=== PATIENT | female | born 1970 | race Caucasian/White ===

== ENCOUNTER 2025-06-14 12:26 | Outpatient (CLI) | payer BC, SELFPAY ==
[2025-06-14 11:09] LABS: HCT 30.3 % (36.0-46.0); HGB 9.9 g/dL (11.2-15.7); MCH 29.5 pg (27.0-33.0); MCHC 32.7 % (32.0-36.0); MCV 90 fL (80-95); MPV 8.8 fL (8.0-11.0); RBC 3.36 10^6/uL (3.93-5.22); RDW 16.4 % (11.7-14.6); RDW-SD 51.1 fL
[2025-06-14 11:36] LABS: Immature Grans % 0.0 %
[2025-06-14 11:37] LABS: Abs Immature Grans 0.00 10^3/uL (0.0-0.06)
[2025-06-14 11:38] LABS: Iron 30 ug/dL (50-170); Total Iron Binding Capacity 256 ug/dL (250-450); Transferrin Sat 12 % (15-50)
[2025-06-14 11:40] LABS: ALT 26 U/L (14-59); AST 26 U/L (15-37); Albumin 2.5 g/dL (3.4-5.0); Alkaline Phosphatase 212 U/L (46-116); Anion Gap 5.7 mmol/L (3-11); BUN 24 mg/dL (7-18); Bilirubin, Total 0.3 mg/dL (0.2-1.0); CO2 33.3 mmol/L (21.0-32.0); Calcium 10.0 mg/dL (8.5-10.1); Chloride 96 mmol/L (98-107); Estimated GFR 107.26 (mL/min/1.73m2); Ferritin 728 ng/mL (8-252); Glucose 103 mg/dL (74-106); Potassium 4.7 mmol/L (3.5-5.1); Sodium 135 mmol/L (136-145); TSH 28.35 uIU/mL (0.36-3.74); Total Protein 7.0 g/dL (6.4-8.2)
[2025-06-14 11:46] LABS: WBC 25.60 10^3/uL (4.4-10.8)
[2025-06-14 11:47] LABS: Platelet Count 931 10^3/uL (130-400); RBC Morphology Normal
== END 2025-06-14 12:27 | disposition home or self-care (01) ==
LOC: LBO 12:27
PROVIDERS: Visit Provider Nurse Practitioner
DX: C10.9 Malignant neoplasm of oropharynx, unspecified (principal)
CPT/HCPCS: 36415; 80053; 82728; 83540; 83550; 84439; 84443; 85025

== ENCOUNTER 2025-07-12 03:35 | Outpatient (RCR) | payer MEDICAID, SELFPAY ==
[2025-06-21] MEDS: Normal Saline Flush 10 ML SYR IVP (10:27)
[2025-06-21 10:52] LABS: Abs Immature Grans 0.13 10^3/uL (0.0-0.06); HCT 27.7 % (36.0-46.0); HGB 8.8 g/dL (11.2-15.7); Immature Grans % 0.9 %; MCH 29.0 pg (27.0-33.0); MCHC 31.8 % (32.0-36.0); MCV 91 fL (80-95); MPV 9.3 fL (8.0-11.0); Platelet Count 698 10^3/uL (130-400); RBC 3.03 10^6/uL (3.93-5.22); RDW 15.8 % (11.7-14.6); RDW-SD 51.4 fL; WBC 14.58 10^3/uL (4.4-10.8)
[2025-06-21 11:30] LABS: ALT 35 U/L (14-59); AST 28 U/L (15-37); Albumin 2.6 g/dL (3.4-5.0); Alkaline Phosphatase 184 U/L (46-116); Anion Gap 2.8 mmol/L (3-11); BUN 38 mg/dL (7-18); Bilirubin, Total 0.3 mg/dL (0.2-1.0); CO2 32.2 mmol/L (21.0-32.0); Calcium 9.1 mg/dL (8.5-10.1); Chloride 96 mmol/L (98-107); Estimated GFR 103.35 (mL/min/1.73m2); Glucose 106 mg/dL (74-106); Potassium 4.6 mmol/L (3.5-5.1); Sodium 131 mmol/L (136-145); TSH 63.50 uIU/mL (0.36-3.74); Total Protein 7.1 g/dL (6.4-8.2)
[2025-07-05 12:16] LABS: Abs Immature Grans 0.19 10^3/uL (0.0-0.06); HCT 29.2 % (36.0-46.0); HGB 9.6 g/dL (11.2-15.7); Immature Grans % 2.6 %; MCH 31.2 pg (27.0-33.0); MCHC 32.9 % (32.0-36.0); MCV 95 fL (80-95); MPV 9.5 fL (8.0-11.0); Platelet Count 211 10^3/uL (130-400); RBC 3.08 10^6/uL (3.93-5.22); RDW 16.8 % (11.7-14.6); RDW-SD 53.3 fL; WBC 7.20 10^3/uL (4.4-10.8)
[2025-07-05] MEDS: Normal Saline Flush 10 ML SYR IVP (12:32)
[2025-07-05 12:44] LABS: ALT 63 U/L (14-59); AST 39 U/L (15-37); Albumin 2.8 g/dL (3.4-5.0); Alkaline Phosphatase 168 U/L (46-116); Anion Gap 6.5 mmol/L (3-11); BUN 28 mg/dL (7-18); Bilirubin, Total 0.3 mg/dL (0.2-1.0); CO2 30.5 mmol/L (21.0-32.0); Calcium 9.8 mg/dL (8.5-10.1); Chloride 95 mmol/L (98-107); Estimated GFR 103.35 (mL/min/1.73m2); Glucose 112 mg/dL (74-106); Potassium 4.3 mmol/L (3.5-5.1); Sodium 132 mmol/L (136-145); TSH 51.87 uIU/mL (0.36-3.74); Total Protein 7.3 g/dL (6.4-8.2)
[2025-07-12] MEDS: Normal Saline Flush 10 ML SYR IVP (13:47)
[2025-07-12 13:52] LABS: Abs Immature Grans 0.18 10^3/uL (0.0-0.06); HCT 26.5 % (36.0-46.0); HGB 8.5 g/dL (11.2-15.7); Immature Grans % 1.4 %; MCH 30.6 pg (27.0-33.0); MCHC 32.1 % (32.0-36.0); MCV 95 fL (80-95); MPV 8.8 fL (8.0-11.0); Platelet Count 493 10^3/uL (130-400); RBC 2.78 10^6/uL (3.93-5.22); RDW 17.0 % (11.7-14.6); RDW-SD 57.7 fL; WBC 13.04 10^3/uL (4.4-10.8)
[2025-07-12 14:40] LABS: ALT 68 U/L (14-59); AST 39 U/L (15-37); Albumin 2.8 g/dL (3.4-5.0); Alkaline Phosphatase 155 U/L (46-116); Anion Gap 9.1 mmol/L (3-11); BUN 27 mg/dL (7-18); Bilirubin, Total 0.2 mg/dL (0.2-1.0); CO2 27.9 mmol/L (21.0-32.0); Calcium 9.0 mg/dL (8.5-10.1); Chloride 99 mmol/L (98-107); Estimated GFR 107.26 (mL/min/1.73m2); Glucose 118 mg/dL (74-106); Potassium 4.7 mmol/L (3.5-5.1); Sodium 136 mmol/L (136-145); TSH 28.39 uIU/mL (0.36-3.74); Total Protein 7.0 g/dL (6.4-8.2)
== END 2025-07-18 23:59 | disposition home or self-care (01) ==
LOC: INF 03:35
PROVIDERS: Visit Provider Internal Medicine Hematology
DX: Z45.2 Encounter for adjustment and management of vascular access device (principal); C14.0 Malignant neoplasm of pharynx, unspecified
CPT/HCPCS: 36591; 80053; 84439; 84443; 85025

== ENCOUNTER 2025-08-16 03:44 | Outpatient (RCR) | payer MEDICAID, SELFPAY ==
[2025-07-26 10:39] LABS: Abs Immature Grans 0.07 10^3/uL (0.0-0.06); HCT 28.4 % (36.0-46.0); HGB 9.3 g/dL (11.2-15.7); Immature Grans % 0.9 %; MCH 31.2 pg (27.0-33.0); MCHC 32.7 % (32.0-36.0); MCV 95 fL (80-95); MPV 10.3 fL (8.0-11.0); RBC 2.98 10^6/uL (3.93-5.22); RDW 16.3 % (11.7-14.6); RDW-SD 52.3 fL; WBC 7.79 10^3/uL (4.4-10.8)
[2025-07-26] MEDS: Normal Saline Flush 10 ML SYR IVP (10:41)
[2025-07-26 11:07] LABS: Platelet Count 84 10^3/uL (130-400); RBC Morphology Normal
[2025-07-26 11:11] LABS: ALT 68 U/L (14-59); AST 31 U/L (15-37); Albumin 3.0 g/dL (3.4-5.0); Alkaline Phosphatase 142 U/L (46-116); Anion Gap 6.3 mmol/L (3-11); BUN 18 mg/dL (7-18); Bilirubin, Total 0.2 mg/dL (0.2-1.0); CO2 28.7 mmol/L (21.0-32.0); Calcium 9.7 mg/dL (8.5-10.1); Chloride 102 mmol/L (98-107); Estimated GFR 107.26 (mL/min/1.73m2); Glucose 124 mg/dL (74-106); Potassium 4.3 mmol/L (3.5-5.1); Sodium 137 mmol/L (136-145); TSH 5.12 uIU/mL (0.36-3.74); Total Protein 7.3 g/dL (6.4-8.2)
[2025-08-02] MEDS: Normal Saline Flush 10 ML SYR IVP (12:03)
[2025-08-02 12:32] LABS: Abs Immature Grans 0.32 10^3/uL (0.0-0.06); HCT 27.6 % (36.0-46.0); HGB 8.8 g/dL (11.2-15.7); Immature Grans % 3.0 %; MCH 31.1 pg (27.0-33.0); MCHC 31.9 % (32.0-36.0); MCV 98 fL (80-95); MPV 9.3 fL (8.0-11.0); Platelet Count 448 10^3/uL (130-400); RBC 2.83 10^6/uL (3.93-5.22); RDW 18.0 % (11.7-14.6); RDW-SD 60.5 fL; WBC 10.56 10^3/uL (4.4-10.8)
[2025-08-02 13:01] LABS: Iron 31 ug/dL (50-170); Total Iron Binding Capacity 240 ug/dL (250-450); Transferrin Sat 13 % (15-50)
[2025-08-02 13:14] LABS: ALT 121 U/L (14-59); AST 46 U/L (15-37); Albumin 2.7 g/dL (3.4-5.0); Alkaline Phosphatase 175 U/L (46-116); Anion Gap 8.9 mmol/L (3-11); BUN 19 mg/dL (7-18); Bilirubin, Total 0.2 mg/dL (0.2-1.0); CO2 26.1 mmol/L (21.0-32.0); Calcium 10.8 mg/dL (8.5-10.1); Chloride 104 mmol/L (98-107); Estimated GFR 107.26 (mL/min/1.73m2); Ferritin 861 ng/mL (8-252); Glucose 108 mg/dL (74-106); Potassium 4.1 mmol/L (3.5-5.1); Sodium 139 mmol/L (136-145); TSH 2.67 uIU/mL (0.36-3.74); Total Protein 7.3 g/dL (6.4-8.2)
[2025-08-09] MEDS: Normal Saline Flush 10 ML SYR IVP (10:36)
[2025-08-09 10:55] LABS: Abs Immature Grans 1.24 10^3/uL (0.0-0.06); HCT 28.1 % (36.0-46.0); HGB 9.0 g/dL (11.2-15.7); MCH 31.4 pg (27.0-33.0); MCHC 32.0 % (32.0-36.0); MCV 98 fL (80-95); MPV 8.9 fL (8.0-11.0); RBC 2.87 10^6/uL (3.93-5.22); RDW 19.7 % (11.7-14.6); RDW-SD 70.2 fL; WBC 18.22 10^3/uL (4.4-10.8)
[2025-08-09 11:15] LABS: Anisocytosis 2+; Basophilic Stippling 1+; Immature Grans % 0.0 %; Microcytosis 1+
[2025-08-09 11:20] LABS: ALT 42 U/L (14-59); AST 15 U/L (15-37); Albumin 2.9 g/dL (3.4-5.0); Alkaline Phosphatase 131 U/L (46-116); Anion Gap 6.0 mmol/L (3-11); BUN 15 mg/dL (7-18); Bilirubin, Total 0.2 mg/dL (0.2-1.0); CO2 30.0 mmol/L (21.0-32.0); Calcium 9.5 mg/dL (8.5-10.1); Chloride 100 mmol/L (98-107); Estimated GFR 112.08 (mL/min/1.73m2); Glucose 85 mg/dL (74-106); Potassium 3.9 mmol/L (3.5-5.1); Sodium 136 mmol/L (136-145); TSH 0.80 uIU/mL (0.36-3.74); Total Protein 6.7 g/dL (6.4-8.2)
[2025-08-09 11:21] LABS: Platelet Count 752 10^3/uL (130-400)
[2025-08-16] MEDS: Normal Saline Flush 10 ML SYR IVP (10:56)
[2025-08-16 11:11] LABS: Abs Immature Grans 0.98 10^3/uL (0.0-0.06); HCT 31.5 % (36.0-46.0); HGB 10.1 g/dL (11.2-15.7); MCH 31.8 pg (27.0-33.0); MCHC 32.1 % (32.0-36.0); MCV 99 fL (80-95); MPV 8.9 fL (8.0-11.0); Platelet Count 521 10^3/uL (130-400); RBC 3.18 10^6/uL (3.93-5.22); RDW 20.7 % (11.7-14.6); RDW-SD 74.1 fL
[2025-08-16 11:35] LABS: WBC 30.55 10^3/uL (4.4-10.8)
[2025-08-16 11:36] LABS: ALT 35 U/L (14-59); AST 15 U/L (15-37); Albumin 3.1 g/dL (3.4-5.0); Alkaline Phosphatase 134 U/L (46-116); Anion Gap 7.1 mmol/L (3-11); Anisocytosis 1+; BUN 12 mg/dL (7-18); Bilirubin, Total 0.3 mg/dL (0.2-1.0); CO2 28.9 mmol/L (21.0-32.0); Calcium 9.9 mg/dL (8.5-10.1); Chloride 99 mmol/L (98-107); Estimated GFR 103.35 (mL/min/1.73m2); Glucose 92 mg/dL (74-106); Immature Grans % 0.0 %; Potassium 3.8 mmol/L (3.5-5.1); Sodium 135 mmol/L (136-145); TSH 2.14 uIU/mL (0.36-3.74); Total Protein 7.2 g/dL (6.4-8.2)
== END 2025-08-17 23:59 | disposition home or self-care (01) ==
LOC: INF 03:44
PROVIDERS: Nurse Practitioner; Visit Provider Internal Medicine Hematology
DX: Z45.2 Encounter for adjustment and management of vascular access device (principal); C14.0 Malignant neoplasm of pharynx, unspecified
CPT/HCPCS: 36591; 80053; 82728; 83540; 83550; 84439; 84443; 85025

== ENCOUNTER 2025-08-16 14:03 | Outpatient (CLI) | payer MEDICAID, SELFPAY ==
--- NOTE | 2025-08-16 | DI.RAD_ITS ---
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 TECHNIQUE: 2D digital imaging was performed. COMPARISON: No exams were available for comparison FINDINGS: 2 views: Tracheostomy tube is in good position. Right-sided Port-A-Cath distal tip is in the upper right atrium. Heart size is normal. The mediastinum is not widened. Lungs are clear. No infiltrates nor pleural effusions. No pneumothorax. IMPRESSION: No acute pulmonary findings.Tracheostomy tube in satisfactory position DATA REPOSITORY: RADIATION DOSE DELIVERED:
== END 2025-08-16 14:23 ==
LOC: DI 09-17 14:03
PROVIDERS: Visit Provider Nurse Practitioner
DX: C14.0 Malignant neoplasm of pharynx, unspecified (principal)
CPT/HCPCS: 71046

== ENCOUNTER 2025-09-13 13:27 | Inpatient (IN) | payer MEDICAID, SELFPAY ==
[2025-09-13] VITALS (19 sets, daily range): BP systolic 89–134; BP diastolic 60–84; PULSE 66–88; RESP 12–19; TEMP 37; O2SAT 95–100
--- NOTE | 2025-09-13 13:30 | RT.EKG_ITS ---
APPROVED REPORT Exam: Resting ECG Reason for Exam: Hypercalcemia Patient Location: E HR:80 bpm ECG Measurements Heart Rate 80 AXIS ME 126 P 37 QRSd 79 QRS 68 QT 338 T 46 QTc 390 Conclusion Sinus rhythm, rate 80 No interval abnormalities Concave ST elevation inferior and precordial leads. No priors available for comparison, no reciprocal changes
--- NOTE | 2025-09-13 14:00 | DI.CT_ITS ---
Exam(s) CT CHEST/ABD/PEL W EXAM: CT CHEST/ABD/PEL W CLINICAL HISTORY: hypercalcemia, malignancy nasopharynx, abd pain. TECHNIQUE: Imaging Protocol: Axial computed tomography images with coronal and sagittal reformatted images were created and reviewed CONTRAST MATERIAL: Intravenous: Omnipaque 350 Contrast volume:100 ml Oral: None COMPARISON: CR XR CHEST 2V PA LATERAL from 08/16/2025 FINDINGS: CHEST: AORTA: The ascending thoracic aorta exhibits normal size. No evidence of aortic aneurysm. No dissection. There is also no evidence of abdominal aortic aneurysm but there is significant atherosclerotic disease in the distal abdominal aorta with heavy mural calcification and luminal stenosis. There is a significant stenosis at the origin of both common iliac arteries, more prominent in the proximal aspect of the the right common iliac artery. More moderate stenosis is noted more distally in these vessels as well as in the proximal external iliac arteries bilaterally. AIRWAY: There is a tracheostomy. Its distal tip is in satisfactory position above the valdez. There is no significant mucous accumulation or mass in the distal trachea and valdez and mainstem bronchi. LUNGS: There are a few small nodular densities in the lateral aspect of the right middle lobe measuring up to 3 mm, possibly significant given the history here. Few calcified granulomas are noted in the opposite-left lung. There is also some atelectasis in the posterior basal segment of the left lower lobe. There are no pleural effusions. MEDIASTINUM: There is no hilar nor mediastinal adenopathy. CARDIAC: Heart size is normal. There is no pericardial effusion. Distal tip of the Port-A-Cath is in the mid right atrium. OSSEOUS: No significant osseous lesions.There is a compression fracture of the superior endplate of T7 which appears similar to lateral chest x-ray of 08/16/2025.. ABDOMEN: There is a PEG gastrostomy. This is in satisfactory position. There is no evidence of FX is process along the course of this device. There is no ascites. No free air. LIVER: There are no focal hepatic lesions nor dilatation of intrahepatic ducts. GALLBLADDER/BILIARY: No obvious gallbladder pathology. CBD is not dilated. PANCREAS: No evidence of pancreatic mass nor dilatation of the pancreatic duct. SPLEEN: Spleen is not enlarged. There are no intrasplenic lesions. Splenic and portal veins are patent. ADRENALS: There are no significant adrenal masses. KIDNEYS: There is a benign cyst in each kidney which does not require further workup. The benign cyst in the superior pole the right kidney measures 2.6 cm and the benign cyst in the inferior pole of the opposite-left kidney measures 2 cm.. There are no solid renal masses. There is a solitary nonobstructive calculus evident in the lower pole of the left kidney.. ABDOMINAL AORTA: Atherosclerotic-see above LYMPH NODES: There is no retroperitoneal nor paraaortic adenopathy. ABDOMINAL WALL: No evidence of significant anterior abdominal wall nor inguinal hernia. GI: There is no evidence of bowel obstruction.There are no ischemic appearing bowel loops. PELVIS: LYMPH NODES: There is no intrapelvic nor inguinal adenopathy. GI: No evidence of appendicitis.No evidence of sigmoid diverticulitis. URINARY BLADDER: There is uniform thickening of the urinary bladder wall. Bladder is not distended. REPRODUCTIVE: Uterus size is age-appropriate. There are no abnormal adnexal masses and there is no free fluid in the cul-de-sac. OSSEOUS: No significant osseous lesions. No pelvic fractures. IMPRESSION: 1. There is a tracheostomy and gastrostomy on both of which appear unremarkable. There is no excess mucous in the trachea and mainstem bronchi. There are no confluent infiltrates nor pleural effusions. 2. There are a few small lung nodules in the lateral segment of the right middle lobe measuring up to 3 mm. Cannot exclude early metastatic disease. Some platelike atelectasis noted in the left lower lobe. Calcified granuloma noted in left lung. 3. No evidence of aortic aneurysm nor dissection. However, there are significant atherosclerotic disease in the distal abdominal aorta and proximal common iliac arteries. Suspect moderate-severe stenosis in the proximal right common iliac artery and moderate stenosis in the proximal left common iliac artery. There is no aneurysmal dilatation of the iliac arteries. 4. There is mild uniform thickening of the urinary bladder. No distinct mass nor diverticuli in the bladder. No radiopaque calculi evident in the bladder. No air-gas in the bladder lumen. Nonobstructive small 3 millimeter calculus in the right kidney.. Called by myself to ER physician 09/13/2025 at 3:30 p.m. RADIATION DOSE DELIVERED: 395.73mGy.cm Total DLP DATA REPOSITORY: All CT scans at this facility are submitted to the National Radiology Data Registry (NRDR) Dose Index Registry (DIR) with the [employer] (A[employer]). RADIATION OPTIMIZATION: All CT scans at this facility use at least one of these dose optimization techniques: automated exposure control; mA and/or kV adjustment per patient size (includes targeted exams where dose is matched to clinical indication); or iterative reconstruction.
--- NOTE | 2025-09-13 14:11 | W.ED.GENAD ---
Discharge Plan Discharge Details Chief Complaint: GenMedical Primary Care Provider: Unknown,Unknown ED Provider: Tess Vega Home Meds and New Rx's Prescriptions: No Action cyclobenzaprine 10 mg tablet 10 mg PO TID PRN Rx Instructions: x 10 days amoxicillin-pot clavulanate 600-42.9 mg/5 mL suspension for reconstitution 5 ml PO BID dexamethasone 6 mg tablet 6 mg PO BID Rx Instructions: with meals carbamide peroxide 6.5 % drops 5 drp otic (ear) BID fluticasone propionate 50 mcg/actuation spray,suspension 2 spray intranasal DAILY Rx Instructions: administer into each nostril chlorhexidine gluconate [Peridex] 0.12 % mouthwash 15 ml mucous membrane TID fluticasone furoate 27.5 mcg/actuation spray,suspension 2 spray intranasal DAILY Rx Instructions: into each nostril multivit with min-folic acid 400 mcg tablet extended release 1 tab PO DAILY Rx Instructions: with lunch HPI General Mode of arrival: wheelchair. Date/Time Provider Initiated Documentation: 09/13/25 13:42. Limitations to Documentation: no limitations. Information obtained by: patient, family and old records reviewed. HPI Narrative: This is a 54-year-old female patient with a past medical history significant for squamous cell carcinoma of the oropharynx, followed at [facility], with a history of significant metabolic derangements including hypercalcemia, anemia, hyponatremia, SIADH, who is presenting for evaluation of increased calcium and general malaise/fatigue. The patient was seen at her oncology clinic today, with a plan to undergo cycle 5 of carboplatin and 5–FU. She also remains on steroids with a known history of leukocytosis. She had pre-treatment laboratory studies drawn that noted a new onset of hypercalcemia with a corrected calcium to 14.1, and was sent to the emergency department to be evaluated and treated. The patient reports that she has been having some change in her sputum, with thicker secretions. She had her G-tube replaced last Saturday, it has been very difficult to flush since that time. Endorsing constipation with last bowel movement on Saturday, no dysuria or hematuria. She denies fever or chills, had some itching of her skin which she and her family have been attributing to her oxycodone. Related Data Home Medications Medication Instructions Recorded Confirmed amoxicillin 600 mg-potassium 5 ml PO BID 05/07/25 clavulanate 42.9 mg/5 mL oral suspension carbamide peroxide 6.5 % ear drops 5 drp otic (ear) BID 05/07/25 chlorhexidine gluconate 0.12 % 15 ml mucous membrane TID 05/07/25 mouthwash (Peridex) cyclobenzaprine 10 mg tablet 10 mg PO TID PRN 05/07/25 dexamethasone 6 mg tablet 6 mg PO BID 05/07/25 fluticasone furoate 27.5 2 spray intranasal DAILY 05/07/25 mcg/actuation nasal spray,suspension fluticasone propionate 50 2 spray intranasal DAILY 05/07/25 mcg/actuation nasal spray,suspension multivitamin with minerals-folic 1 tab PO DAILY 05/07/25 acid 400 mcg tablet, extended release Allergies Allergy/AdvReac Type Severity Reaction Status Date / Time No Known Allergies Allergy Verified 05/07/25 15:59 General Stated Complaint: GenMedical KALYN: 3 Exam Narrative Exam Narrative: Gen: Awake and alert, in no apparent distress. Is cachectic and chronically ill-appearing HEENT: Non-icteric sclera, PERRL Neck: Supple, tracheostomy in place, with thick white to yellow sputum Lungs: No apparent respiratory distress, normal respiratory effort. Clear and equal without wheezing, rhonchi, rales CV: Appears well perfused, heart with regular rate and rhythm, no murmurs auscultated Abdomen: Non-distended, soft, tenderness to palpation in the periumbilical region and around her G-tube, no surrounding skin changes, no rigidity, rebound, or guarding MSK: Moves 4 extremities without apparent limitation in ROM. No peripheral edema,no CVA tenderness Skin: Visualized skin without rashes, cyanosis. Neuro: No obvious focal deficits or facial asymmetry. Speaks in full, quiet sentences. Psych: Appropriate for situation. Course Vital Signs Vital signs: Vital Signs Temperature 37.0 C 09/13/25 13:34 Pulse 88 09/13/25 13:34 Respiratory Rate 16 09/13/25 13:34 Blood Pressure 89/61 L 09/13/25 13:34 Pulse Oximetry 95 09/13/25 13:34 Temperature 37.0 C 09/13/25 13:35 Pulse 88 09/13/25 13:35 Respiratory Rate 16 09/13/25 13:35 Blood Pressure 89/61 L 09/13/25 13:35 Pulse Oximetry 95 09/13/25 13:35 Oxygen Delivery Method Room Air 09/13/25 13:35 Oxygen Flow Rate 0 09/13/25 13:35 Pain Level 0 09/13/25 13:35 Medical Decision Making This is a 54-year-old female patient with a past medical history significant for squamous cell carcinoma of the nasopharynx, presenting for evaluation of hypercalcemia, general fatigue, abdominal discomfort and constipation. My differential includes but is not limited to hypercalcemia of malignancy, certainly considered hyperparathyroidism (though unfortunately PTH is a send out test at our hospital), considered bone resorption or destruction, metastatic disease. Considered constipation, ileus, bowel obstruction, considered misplacement of G-tube, dehydration, renal failure. The patient's leukocytosis appreciated in the outpatient environment is likely due to her steroid use, I certainly considered an infectious etiologies including aspiration pneumonia, urinary tract infection, intra-abdominal infection, etc. We will obtain labs to include CBC, CMP, magnesium, troponin, GGT, and urinalysis. I will provide the patient with a liter of normal saline for initial rehydration. We will obtain CT imaging of the chest, abdomen, and pelvis to evaluate for evidence of bony destruction, bowel obstruction, and other pathology. I will provide the patient with Tyleno and morphine for symptomatic management of her chronic pain. I obtained an EKG, which shows a sinus rhythm with a rate of 80, with diffusel 1 and less than 1 mm elevations in the inferior and precordial leads, concave, no priors available for comparison, no reciprocal changes. Given the lack of chest pain I have less concern for STEMI and acute ACS. - I reviewed the patient's laboratory studies, which do show a stable leukocytosis to 24 to her chronic steroid use. Anemia redemonstrated at 8.0, no thrombocytopenia. Chemistry panel reveals a very mild hyponatremia to 133, BUN elevation to 31 but no old change in creatinine or GFR. Corrected calcium 14.0 in this patient with a measured calcium of 12.8 and a albumin of 2.5. She has a slight elevation in her alkaline phosphatase to 138, GGT slightly up at 67. CT chest abdomen pelvis obtained and I discussed the results with the radiologist. There is no evidence of destructive bony lesions, pulmonary opacities to suggest acute infection, and the G-tube appears appropriately placed. I provided the patient with a dose of zoledronate, as well as calcitonin. I discussed the case with oncology, who recommends continuing treatment for Hypercalcemia of malignancy with fluid rehydration, redosing of calcitonin and bisphosphonates as needed, and trending of her calcium. The patient can tolerate puréed diet and liquids, did request an oral Zofran while in the emergency department which was provided. I sent off send out labs to include vitamin D, PTH, PTH RP, and reach out to the hospitalist who is graciously accepted this patient for admission to their service. The patient remained hemodynamically improved and was transferred from our department without incident. Tess Vega MD [facility] All Active Problems (Updated 05/07/25 @ 16:16 by Hui Edmonds RN) Laryngeal mass (Acute) 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 Esophageal obstruction (Acute) Esophageal cancer (Acute) Medical History (Updated 05/07/25 @ 16:16 by Hui Edmonds RN) SIADH (syndrome of inappropriate ADH production) Hyponatremia HTN (hypertension) Failure to thrive in adult Surgical History (Updated 05/07/25 @ 16:16 by Hui Edmonds RN) Gastrostomy tube in place Social History Smoking risk assessment performed?: No
[2025-09-13] MEDS: MORPHine 4 MG/ML SYR IVP (14:25)
[2025-09-13] MEDS: ACETAMINOPHEN 1,000 MG/100 ML BAG 400 MG IVPB (14:25)
[2025-09-13 14:26] LABS: Abs Immature Grans 0.42 10^3/uL (0.0-0.06); HCT 23.7 % (36.0-46.0); HGB 8.0 g/dL (11.2-15.7); Immature Grans % 1.7 %; MCH 34.8 pg (27.0-33.0); MCHC 33.8 % (32.0-36.0); MCV 103 fL (80-95); MPV 9.6 fL (8.0-11.0); Platelet Count 172 10^3/uL (130-400); RBC 2.30 10^6/uL (3.93-5.22); RDW 17.6 % (11.7-14.6); RDW-SD 65.2 fL; WBC 24.32 10^3/uL (4.4-10.8)
[2025-09-13] MEDS: Normal Saline 1,000 ML 1000 ML IV (14:26)
[2025-09-13 14:38] LABS: Anisocytosis 2+
[2025-09-13 14:39] LABS: Hypochromasia 1+
[2025-09-13 14:41] LABS: ALT 22 U/L (14-59); AST 13 U/L (15-37); Albumin 2.5 g/dL (3.4-5.0); Alkaline Phosphatase 138 U/L (46-116); Anion Gap 5.1 mmol/L (3-11); BUN 31 mg/dL (7-18); Bilirubin, Total 0.2 mg/dL (0.2-1.0); CO2 34.9 mmol/L (21.0-32.0); Chloride 93 mmol/L (98-107); Glucose 130 mg/dL (74-106); Magnesium 1.7 mg/dL (1.8-2.4); Potassium 3.7 mmol/L (3.5-5.1); Sodium 133 mmol/L (136-145); Total Protein 6.4 g/dL (6.4-8.2)
[2025-09-13 14:43] LABS: Calcium 12.8 mg/dL (8.5-10.1)
[2025-09-13] MEDS: Omnipaque 350 MG/ML 100 ML BTL IJ (14:54)
[2025-09-13] MEDS: Normal Saline Flush 10 ML SYR IVP ×3 (14:55→21:09)
[2025-09-13] MEDS: Normal Saline - Diluent 50 ML VIAL IJ (14:55)
[2025-09-13 15:12] LABS: GGT 67 U/L (5-55); Troponin I 10 ng/L (<or=51)
[2025-09-13] MEDS: MAGNESIUM SULFATE 2 GM/50 ML BAG IV_INF (15:25)
[2025-09-13] MEDS: Ondansetron O.D.T. 4 MG TABEF PO (16:06)
[2025-09-13 16:14] LABS: Troponin I 11 ng/L (<or=51)
[2025-09-13 17:18] LABS: TSH (W/Ref FT4) 4.96 uIU/mL (0.36-3.74)
--- NOTE | 2025-09-13 17:45 | W.PM.HP.N ---
Date of service: 09/13/25 Time of Service: 17:30 Assessment and Plan Assessment and plan (1) Hypercalcemia of malignancy: Status: Acute Assessment and plan: Corrected calcium 14.1 on arrival, slightly improved after zoledronic acid, calcitonin, NS bolus Per review of the guidelines, goal urine output 100-150 ml/hr Can repeat calcitonin as needed, no effect after 48 hours Zoledronic acid can be repeated in a week Admitted to ICU for frequent monitoring/labs and tracheostomy care TSH elevated, awaiting free T4 Awaiting PTH labs (2) Squamous cell carcinoma of nasopharynx: Status: Acute Assessment and plan: [place] [facility] [place] in [place] Continue PRN oxycodone (3) Tracheostomy in place: Status: Acute Assessment and plan: Not used for breathing Regular tracheostomy care (4) Gastrostomy tube in place: Assessment and plan: Regular PEG care Patient can tolerate puree Continue PPI (5) Hypothyroidism: Status: Chronic Assessment and plan: Continue levothyroxine History of Present Illness History of Present Illness Chief Complaint: weakness/malaise Narrative: Cindy Caputo is a 54 year old woman presenting September 13, sent in from oncology clinic where she was unable to have today's chemotherapy due to abnormal labs. Patient has squamous cell carcinoma of the oropharynx and [place] [facility] [place] She has a trach collar, which she does not depend on for breathing but cannot be removed, and she reports that she has had some increased sputum production lately. She has had difficulty flushing her PEG since it was replaced last Saturday. She is constipated and reports her last BM was 5 days prior to arrival. She has had itchy skin that she associates with oxycodone. She complains only of fatigue, and discomfort at the site of her PEG tube. No chest pain, no shortness of breath, no abdominal pain, no N/V/D. In the ED her blood pressure was low 89/61; vitals otherwise unremarkable. EKG with sinus rhythm, no STEMI. CT chest/abdomen/pelvis confirm tracheostomy and gastrostomy; some small lung nodules, atherosclerotic disease, bladder thickening; no apparent new masses. Leukocytosis 26.19. Macrocytic anemia with hgb 8.6 and MCV 103. Mild hyponatremia 134. Elevated CO2 35.6. Renal function intact with elevated BUN. Mg 1.7. Thyroid and PTH labs sent. She was confirmed to have elevated corrected calcium 14.1. [facility] [place] and recommended zoledronic acid and calcitonin, which were given in the ED, as well as isotonic saline. PFSH All Active Problems (Updated 09/13/25 @ 18:51 by Narinder Fuentes MD) Hypothyroidism (Chronic) PEG (percutaneous endoscopic gastrostomy) status (Acute) Tracheostomy in place (Acute) Hypercalcemia of malignancy (Acute) Laryngeal mass (Acute) 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 Esophageal obstruction (Acute) Esophageal cancer (Acute) Medical History (Updated 09/13/25 @ 18:51 by Narinder Fuentes MD) SIADH (syndrome of inappropriate ADH production) Hyponatremia HTN (hypertension) Failure to thrive in adult Surgical History (Updated 09/13/25 @ 18:51 by Narinder Fuentes MD) Gastrostomy tube in place Social History Smoking risk assessment performed?: No Do you feel safe at home: Yes Do you feel safe in your relationship?: Yes Meds Allergies and Home Medications Allergies Allergy/AdvReac Type Severity Reaction Status Date / Time No Known Allergies Allergy Verified 05/07/25 15:59 Home Medications Medication Instructions Recorded Confirmed Type chlorhexidine gluconate 0.12 % 15 ml mucous membrane TID 05/07/25 09/13/25 History mouthwash (Peridex) levothyroxine 100 mcg tablet 100 mcg PO DAILY 09/13/25 09/13/25 History omeprazole 20 mg capsule,delayed 20 mg PO DAILY 09/13/25 09/13/25 History release oxycodone 5 mg/5 mL oral solution 5 mg PO Q4H PRN 09/13/25 09/13/25 History Exam Narrative Exam Narrative: General: This is a diminutive, chronically ill-appearing woman in no distress HEENT: Tracheostomy, impaired phonation, inability to control secretions CV: RRR. Portacath upper right chest. Resp: CTAB Abd: soft, NTND. PEG in place, site c/d/i MSK: voluntary motion x4 Neuro: awake, alert, no focal deficits Results Labs 09/13/25 14:10 09/13/25 14:10 Labs: Laboratory Results - last 24 hr 09/13/25 09/13/25 09/13/25 14:10 15:50 16:36 WBC 24.32 H RBC 2.30 L Hgb 8.0 L Hct 23.7 L MCV 103 H MCH 34.8 H MCHC 33.8 RDW 17.6 H Plt Count 172 MPV 9.6 Immature Gran % 1.7 Neutrophils % 92.1 Lymphocytes % 2.5 Monocytes % 3.3 Eosinophils % 0.0 Basophils % 0.4 Nucleated RBC % 0.0 Absolute Neutrophils 22.40 H Absolute Lymphocytes 0.61 L Absolute Monocytes 0.80 Absolute Eosinophils 0.00 Absolute Basophils 0.10 RBC Morphology See Below Hypochromasia 1+ Anisocytosis 2+ Sodium 133 L Potassium 3.7 Chloride 93 L Carbon Dioxide 34.9 H Anion Gap 5.1 BUN 31 H Creatinine 0.9 Est GFR (CKD-EPI 2020) 76.44 Glucose 130 H Calcium 12.8 H* Magnesium 1.7 L Total Bilirubin 0.2 GGT 67 H AST 13 L ALT 22 Alkaline Phosphatase 138 H Troponin I 10 11 Total Protein 6.4 Albumin 2.5 L TSH 4.96 H 09/13/25 17:04 WBC RBC Hgb Hct MCV MCH MCHC RDW Plt Count MPV Immature Gran % Neutrophils % Lymphocytes % Monocytes % Eosinophils % Basophils % Nucleated RBC % Absolute Neutrophils Absolute Lymphocytes Absolute Monocytes Absolute Eosinophils Absolute Basophils RBC Morphology Hypochromasia Anisocytosis Sodium Potassium Chloride Carbon Dioxide Anion Gap BUN Creatinine Est GFR (CKD-EPI 2020) Glucose Calcium Magnesium Total Bilirubin GGT AST ALT Alkaline Phosphatase Troponin I Cancelled Total Protein Albumin TSH Last Vital Signs Temp 37.0 C 09/13/25 13:35 Pulse 76 09/13/25 15:20 Resp 18 09/13/25 15:20 BP 89/61 L 09/13/25 13:35 Pulse Ox 99 09/13/25 15:20 Time Spent Time spent with Patient: 40-54 minutes Time was spent: preparing to see the patient(eg.review tests), obtaining and/or reviewing separately otained hiistory, ordering medications,tests, procedures, referring, communicating with other health pet care associate, indepentently interpreting results, counseling the patient and care coordination
[2025-09-13 18:22] LABS: Glucose Negative (Negative)
--- NOTE | 2025-09-13 18:33 | W.PC.ACHO ---
Registration Status: REG ER Primary Language: Preferred Language: ED Information & Data Chief Complaint GenMedical 09/13/25 18:25 Chief Complaint GenMedical 09/13/25 14:14 Triage Note pt being treated for throat 09/13/25 13:34 and head cancer, had lab work done this am, high calcium, pt feels a little dizzy Medical / Surgical History (Last Updated 05/07/25 @ 16:16 by Hui Edmonds, RN) SIADH (syndrome of inappropriate ADH production) Hyponatremia HTN (hypertension) Failure to thrive in adult (Last Updated 05/07/25 @ 16:16 by Hui Edmonds, GREGORIA) Gastrostomy tube in place Most Recent Vital Signs Temperature 37.0 C 09/13/25 13:35 Pulse 76 09/13/25 15:20 Pulse 76 09/13/25 15:20 Respiratory Rate 14 09/13/25 18:22 Respiratory Effort Normal, Non-Labored 09/13/25 18:22 Respiratory Depth Normal 09/13/25 18:22 Respiratory Pattern Normal 09/13/25 18:22 Blood Pressure 89/61 L 09/13/25 13:35 Pulse Oximetry 99 09/13/25 15:20 Oxygen Delivery Method Room Air 09/13/25 13:35 Oxygen Flow Rate 0 09/13/25 13:35 Pain Level 0 09/13/25 13:35 Allergies No Known Allergies Allergy (Verified 05/07/25 15:59) Precautions Isolation Standard precaution 09/13/25 18:25 Active Medications Generic Name Dose Route Start Last Admin Trade Name Freq PRN Reason Stop Dose Admin Zoledronic Acid 4 mg/ Sodium 100 mls @ 400 mls/hr 09/13/25 16:00 09/13/25 16:00 Chloride IVPB 400 mls/hr TODAY ARSLAN Administration Sodium Chloride 0 ml 09/13/25 14:50 09/13/25 14:55 Normal Saline Flush 10 Ml Syr IVP 10 ml PRN PRN Administration IV IV Catheter Type [Right] Port-a-cath (double) Diet Orders Category Date Time Status Regular/Normal [DIET] Nutrition 09/13/25 Dinner Active Diagnostics 09/13/25 09/13/25 09/13/25 Range/Units 22:00 17:44 17:04 WBC (4.4-10.8) 10^3/uL RBC (3.93-5.22) 10^6/uL Hgb (11.2-15.7) g/dL Hct (36.0-46.0) % MCV (80-95) fL MCH (27.0-33.0) pg MCHC (32.0-36.0) % RDW (11.7-14.6) % Plt Count (130-400) 10^3/uL MPV (8.0-11.0) fL Immature Gran % % Neutrophils % % Lymphocytes % % Monocytes % % Eosinophils % % Basophils % % Nucleated RBC % (0.0-0.3) % Absolute Neutrophils (1.2-6.7) 10^3/uL Absolute Lymphocytes (1.2-3.4) 10^3/uL Absolute Monocytes (0.1-0.8) 10^3/uL Absolute Eosinophils (0.0-0.7) 10^3/uL Absolute Basophils (0.0-0.2) 10^3/uL RBC Morphology Hypochromasia Anisocytosis Sodium Pending (136-145) mmol/L Potassium Pending (3.5-5.1) mmol/L Chloride Pending (98-107) mmol/L Carbon Dioxide Pending (21.0-32.0) mmol/L Anion Gap Pending (3-11) mmol/L BUN Pending (7-18) mg/dL Creatinine Pending (0.55-1.02) mg/dL Est GFR (CKD-EPI 2020) Pending (mL/min/1.73m2) Glucose Pending (74-106) mg/dL Calcium Pending (8.5-10.1) mg/dL Ionized Calcium Magnesium (1.8-2.4) mg/dL Total Bilirubin (0.2-1.0) mg/dL GGT (5-55) U/L AST (15-37) U/L ALT (14-59) U/L Alkaline Phosphatase (46-116) U/L Troponin I Cancelled (<or=51) ng/L Total Protein (6.4-8.2) g/dL Albumin (3.4-5.0) g/dL Vit D 1,25-Dihydroxy TSH (0.36-3.74) uIU/mL PTH Intact PTH Related Peptide Urine Color Yellow (Yellow) Urine Clarity Clear (Clear) Urine pH 7.0 (5-8) Ur Specific [place] 1.010 (1.005-1.025) Urine Protein Negative (Neg-Trace) mg/dL Urine Ketones Negative (Negative) mg/dL Urine Blood Negative (Negative) Urine Nitrite Negative (Negative) Urine Bilirubin Negative (Negative) Urine Urobilinogen 0.2 (Up to 0.2) mg/dL Ur Leukocyte Esterase Negative (Negative) Urine Glucose Negative (Negative) mg/dL 09/13/25 09/13/25 09/13/25 Range/Units 16:36 15:50 14:10 WBC 24.32 H (4.4-10.8) 10^3/uL RBC 2.30 L (3.93-5.22) 10^6/uL Hgb 8.0 L (11.2-15.7) g/dL Hct 23.7 L (36.0-46.0) % MCV 103 H (80-95) fL MCH 34.8 H (27.0-33.0) pg MCHC 33.8 (32.0-36.0) % RDW 17.6 H (11.7-14.6) % Plt Count 172 (130-400) 10^3/uL MPV 9.6 (8.0-11.0) fL Immature Gran % 1.7 % Neutrophils % 92.1 % Lymphocytes % 2.5 % Monocytes % 3.3 % Eosinophils % 0.0 % Basophils % 0.4 % Nucleated RBC % 0.0 (0.0-0.3) % Absolute Neutrophils 22.40 H (1.2-6.7) 10^3/uL Absolute Lymphocytes 0.61 L (1.2-3.4) 10^3/uL Absolute Monocytes 0.80 (0.1-0.8) 10^3/uL Absolute Eosinophils 0.00 (0.0-0.7) 10^3/uL Absolute Basophils 0.10 (0.0-0.2) 10^3/uL RBC Morphology See Below Hypochromasia 1+ Anisocytosis 2+ Sodium 133 L (136-145) mmol/L Potassium 3.7 (3.5-5.1) mmol/L Chloride 93 L (98-107) mmol/L Carbon Dioxide 34.9 H (21.0-32.0) mmol/L Anion Gap 5.1 (3-11) mmol/L BUN 31 H (7-18) mg/dL Creatinine 0.9 (0.55-1.02) mg/dL Est GFR (CKD-EPI 2020) 76.44 (mL/min/1.73m2) Glucose 130 H (74-106) mg/dL Calcium 12.8 H* (8.5-10.1) mg/dL Ionized Calcium Pending Magnesium 1.7 L (1.8-2.4) mg/dL Total Bilirubin 0.2 (0.2-1.0) mg/dL GGT 67 H (5-55) U/L AST 13 L (15-37) U/L ALT 22 (14-59) U/L Alkaline Phosphatase 138 H (46-116) U/L Troponin I 11 10 (<or=51) ng/L Total Protein 6.4 (6.4-8.2) g/dL Albumin 2.5 L (3.4-5.0) g/dL Vit D 1,25-Dihydroxy Pending TSH 4.96 H (0.36-3.74) uIU/mL PTH Intact Pending PTH Related Peptide Pending Urine Color (Yellow) Urine Clarity (Clear) Urine pH (5-8) Ur Specific [place] (1.005-1.025) Urine Protein (Neg-Trace) mg/dL Urine Ketones (Negative) mg/dL Urine Blood (Negative) Urine Nitrite (Negative) Urine Bilirubin (Negative) Urine Urobilinogen (Up to 0.2) mg/dL Ur Leukocyte Esterase (Negative) Urine Glucose (Negative) mg/dL Intake and Output - 24 Hour Total 09/13/25 13:27 thru 09/13/25 17:00 Intake Total 1110 Balance 1110 Weight 43.273 kg Intake: IV 1110 Falls Risk Assessment History of Falls No History 09/13/25 14:17 Contributing Factors Impairments,Medications 09/13/25 14:17 Ambulatory Aids Uses ambulatory device + 09/13/25 14:17 Tubes/Lines With any additional score 09/13/25 14:17 Gait Evaluation W/any additional score 09/13/25 14:17 Cognition No cognitive impairment 09/13/25 14:17 Fall Total Score 76 09/13/25 14:17 Level of Risk Maximum Risk 09/13/25 14:17 v v v v v v v v v Sending and/or Receiving Nurses: Please use comment section below to note any information pertinent to the patient hand-off not included above. Information / Comments: Report received from: Holley KINNEY
[2025-09-13] MEDS: Normal Saline 1,000 ML 100 ML IV (19:43)
[2025-09-13] MEDS: Acetaminophen 325 MG TAB 650 MG PO (21:00)
[2025-09-13] MEDS: oxyCODONE 5 MG/5 ML CUP PO (21:00)
[2025-09-13] MEDS: Ondansetron 4 MG/2 ML VIAL IVP (21:08)
[2025-09-13 22:35] LABS: Anion Gap 4.5 mmol/L (3-11); BUN 22 mg/dL (7-18); CO2 32.5 mmol/L (21.0-32.0); Calcium 10.9 mg/dL (8.5-10.1); Chloride 97 mmol/L (98-107); Glucose 105 mg/dL (74-106); Potassium 3.4 mmol/L (3.5-5.1); Sodium 134 mmol/L (136-145)
--- NOTE | 2025-09-13 23:15 | RESPIRATORY ---
Addendum entered by Jorge L Hackett 09/15/25 14:54: Pt will be seen as outpatient on Thursday 09/[address] Uriarte for a trach change. RT has ordered a Shiley cuffless size 6 (7.5mm ID / 10.8mm OD) [id number] for this. Product should arrive to [facility] by Saturday after 09/17. Original Note: Pt. in ICU with pt's own Shiley cuffed tracheotomy tube size 6. Does not use O2 at baseline but does use humidifier per pt. but unclear what type of it. It appears to have trach's cuff ballon tube is cut/taken off and hard to tell if it's occluded or opened to release air from balloon, pt. also does not has knowledge about it. I believe it's opened and working as cuffless trach based on pt. producing voice. RT set up MATCH UP PERSON with trach collar for humidity at 21% FiO2 and 4L of O2 flow rate. Tracheotomy stoma site appears to be intact and clean. Hospital tracheotomy emergency kits at bedside. Pt. has forgotten to brought her emergency kit with her and RT has recommended to bring if anyone can bring if she going to stay more days in hospital.
[2025-09-14] VITALS (42 sets, daily range): BP systolic 90–136; BP diastolic 54–82; PULSE 71–100; RESP 10–22; TEMP 36.6–38.8; O2SAT 95–100
[2025-09-14] MEDS: oxyCODONE 5 MG/5 ML CUP PO ×3 (02:19→21:36)
[2025-09-14] MEDS: Acetaminophen 325 MG TAB 650 MG PO ×3 (05:12→18:32)
[2025-09-14] MEDS: Normal Saline Flush 10 ML SYR IVP ×4 (05:13→18:29)
[2025-09-14] MEDS: Normal Saline 1,000 ML 100 ML IV (05:24)
[2025-09-14] MEDS: Polyethylene Glycol 3350 17 GM PACKET PO (05:24)
[2025-09-14] MEDS: Levothyroxine 100 MCG TAB PO (06:31)
[2025-09-14 06:51] LABS: Abs Immature Grans 0.42 10^3/uL (0.0-0.06); Immature Grans % 2.2 %; MCH 34.3 pg (27.0-33.0); MCHC 33.2 % (32.0-36.0); MCV 104 fL (80-95); MPV 9.5 fL (8.0-11.0); Platelet Count 177 10^3/uL (130-400); RBC 1.98 10^6/uL (3.93-5.22); RDW 17.5 % (11.7-14.6); RDW-SD 64.9 fL; WBC 19.33 10^3/uL (4.4-10.8)
[2025-09-14 06:57] LABS: HGB 6.8 g/dL (11.2-15.7)
[2025-09-14 06:58] LABS: HCT 20.5 % (36.0-46.0)
[2025-09-14 07:11] LABS: ALT 16 U/L (14-59); AST 11 U/L (15-37); Albumin 2.2 g/dL (3.4-5.0); Alkaline Phosphatase 103 U/L (46-116); Anion Gap 2.9 mmol/L (3-11); BUN 16 mg/dL (7-18); Bilirubin, Total 0.2 mg/dL (0.2-1.0); CO2 32.1 mmol/L (21.0-32.0); Calcium 9.9 mg/dL (8.5-10.1); Chloride 99 mmol/L (98-107); Glucose 80 mg/dL (74-106); Potassium 3.2 mmol/L (3.5-5.1); Sodium 134 mmol/L (136-145); Total Protein 5.6 g/dL (6.4-8.2)
[2025-09-14 08:06] LABS: HCT 19.9 % (36.0-46.0); HGB 6.7 g/dL (11.2-15.7)
--- NOTE | 2025-09-14 08:37 | INITIAL_ITS ---
Care Management Initial Assmt Initial Assessment Reason for Hospitalization: Hypercalcemia Functional Status/Living Situation Patient Presentation: Cindy was semi-reclining in bed in the ICU when CM met with her. She appeared uncomfortable and, while polite, was not very talkative. Cindy was admitted with hypercalcemia and anemia. 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 She received 2 units of blood and her hypercalcemia is being treated with zoledronic acid and calcitonin at the recommendation of her [facility] team. Cindy lives alone in an apartment in [place]. She has 3 children but only 1 lives locally. 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 She receives RN and PT through [employer]. She is mostly independent with ADLs but does require some assistance which her [id number] provides. Town of Residence: [place] Resides with: Alone Significant Other/Family: Local Caregiver/Guardian: [id number] Employment Status: Unemployed Instrumental Activities of Daily Living (ADLs): Requires support (needs some help which [id number] provides) Medications Medication Management: No Issues/Barriers identified Advance Directives Advance Directives: Do you have an Advance Directive: Y , 13:33 AD On File at [facility]: Y 09/13/25, 13:33 Date Asked 07/16/25 09/13/25, 13:33 AD Date Reviewed 09/13/25 09/13/25, 13:33 COLST On File at [facility] COLST Date Scanned Code Status Resuscitation Status DNR Portal Pt does not currently have a portal and education provided: Yes Insurance Coverage/Financial Issues Insurance: Medicaid Care Team Visit Care Team Role Provider Type Unknown Unknown Primary Care Provider STAFF PHYSICIAN Mary Bnoe RDN, CDCANA Other Providers COMB WINDER [employer] Other Providers OTHER Shubham Sanchze RDN Other Providers COMB WINDERGARTH Vega MD Emergency Provider [facility] STAFF PHYSICIAN Narinder Fuentes MD Admit Provider [facility] STAFF PHYSICIAN Attending Provider Discharge Potential Discharge Needs: PCP F/U Appt and Other (Oncology) Anticipated Barriers to Discharge: None Identified Patient/Family Education Needs: Review discharge instructions, discuss Ask Me Three Transportation: Private vehicle Plan: Anticipate Cindy will be discharged home with a resumption of home health services when medically cleared. She will follow up with her community providers and plan of care and transport with family. CM will follow and continue to support discharge planning. Social Determinants of Health Screening Social Determinants of health last assessed in clinic: 09/14/25 Will the Patient Participate in the Screening?: Yes Do you worry about having a steady place to live?: no Problems where you live: no known problems In the past 12 months, have you had to go without electric, gas, oil or water in your home?: no 1. Within the past 12 months, we worried whether our food would run out before we got money to buy more.: Never true 2. Within the past 12 months, the food we bought just didn't last and we didn't have money to get more.: Never true Has lack of transportation kept you from medical appointments or from doing things needed for daily living?: no Has anyone in your life made you feel unsafe or unsupported?: no How hard is it for you to pay for the very basics like food, housing, medical care, and heating? Would you say it is:: Not hard at all Do you want help finding or keeping work or a job?: I do not need or want help If for any reason you need help with day-to-day activities such as bathing, preparing meals, shopping, managing finances, etc., do you get the help you need?: I don’t need any help How often do you feel lonely or isolated from those around you?: Never Do you speak a language other than Nepali at home?: No Does the patient want assistance with any of the above?: No PFSH All Active Problems (Updated 09/13/25 @ 18:51 by Narinder Fuentes MD) Hypothyroidism (Chronic) PEG (percutaneous endoscopic gastrostomy) status (Acute) Tracheostomy in place (Acute) Hypercalcemia of malignancy (Acute) Laryngeal mass (Acute) 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 Esophageal obstruction (Acute) Esophageal cancer (Acute) Medical History (Updated 09/13/25 @ 18:51 by Narinder Fuentes MD) SIADH (syndrome of inappropriate ADH production) Hyponatremia HTN (hypertension) Failure to thrive in adult Surgical History (Updated 09/13/25 @ 18:51 by Narinder Fuentes MD) Gastrostomy tube in place Social History Smoking/Tobacco Use Status: Former Tobacco Use Smoking risk assessment performed?: Yes Do you feel safe at home: Yes Do you feel safe in your relationship?: Yes
[2025-09-14] MEDS: Chlorhexidine Gluconate 0.12% Mouthwash 15 ML BTL MM ×3 (08:57→18:28)
[2025-09-14] MEDS: Pantoprazole 40 MG VIAL IVP (08:57)
[2025-09-14] MEDS: POTASSIUM CHLORIDE/D5-0.9%NACL 1,000 ML 100 MEQ IV ×2 (09:00→18:32)
[2025-09-14] MEDS: Bisacodyl 10 MG SUPP PR (10:28)
[2025-09-14] MEDS: Ondansetron 4 MG/2 ML VIAL IVP (10:28)
[2025-09-14] MEDS: Methylnaltrexone 12 MG/0.6 ML VIAL 8 MG SC (10:28)
[2025-09-14] MEDS: Senna TAB 1 TAB PO (10:28)
[2025-09-14] MEDS: Prochlorperazine 10 MG/2 ML VIAL IVP (11:13)
--- NOTE | 2025-09-14 13:24 | PHACLINREV_ITS ---
Pharmacy Admission Review Admission Clinical Review Admission Pharmacy Review: Tracheostomy in place (Acute) Hypercalcemia of malignancy (Acute) Squamous cell carcinoma of nasopharynx (Acute) No Known Allergies Allergy (Verified 05/07/25 15:59) Resuscitation Status DNR Height 5 ft 2 in Weight 45.1 kg Comments Comments/Follow Ups: Follow up on home med questions Pharmacy Admission Review Renal Dosing Renal Dosing: BUN 16 mg/dL (7-18) 09/14/25 05:30 Creatinine 0.6 mg/dL (0.55-1.02) 09/14/25 05:30 Medications needing adjustments: Reviewed (CrCl 76.5 mL/min) List of meds needing interventions: Current medications are okay Anticoagulation Anticoagulation: Hgb 6.7 g/dL (11.2-15.7) L* 6.8 g/dL (11.2-15.7) L* 09/14/25 07:55 09/14/25 05:30 Hct 19.9 % (36.0-46.0) L* 09/14/25 07:55 Plt Count 177 10^3/uL (130-400) 09/14/25 05:30 Creatinine 0.6 mg/dL (0.55-1.02) 09/14/25 05:30 DVT Prophylaxis: Intervened (holding for now due to transfusion today - con firmed with provider) Opiate Usage Evaluate Pain Scale/Pains Meds: Reviewed (5mg q4h PRN - 15mg/24hrs) Scheduled Bowel Reg ordered if on Opiates?: No (PRN docusate/Senna) Relevant Labs Relevant Labs: Sodium 134 mmol/L (136-145) L 09/14/25 05:30 Potassium 3.2 mmol/L (3.5-5.1) L 09/14/25 05:30 Chloride 99 mmol/L (98-107) 09/14/25 05:30 Magnesium 1.7 mg/dL (1.8-2.4) L 09/13/25 14:10 Electrolytes, C-Reactive P, ESR: Reviewed (K 3.2 - receiving potassium/D5/NS infusion) Cardiac Review Cardiac Review: Troponin I Cancelled 09/13/25 17:04 BP, HR, EF%: Reviewed (HR and BP WNL) QTc Review QTc: Reviewed (390 from 09/13/25) IV to PO Switch IV Medications: Reviewed (ondansetron, pantoprazole and prochlorperazine) Home Meds Home Med List reviewed: Intervened Relevent Home Meds Not ordered & why?: omeprazole (has order for IV pantoprazole) Recently filled but not on home med list: liothyronine, hydrocortisone and sodium chloride nebs. Asked nurse to see if patient takes at home, waiting to hear back. Current Meds Current Medication Order Review: Intervened Comments: Changed IV ED access Changed chlorhexidine order from 118ml bulk bottle to 15ml cups - order originally put in as the bulk 118mL bottle, overnight nurse pulled a 15ml cup from pharmacy and documented as given. I credited the bulk bottle and debited for 1 cup. Comments Comments/Follow Ups: Follow up on home med questions
[2025-09-14] MEDS: LORazepam 2 MG/1 ML Oral Concentrate 0.5 MG PO (13:58)
--- NOTE | 2025-09-14 14:21 | PT.INNT ---
PT Notes Visit Reasons: Hypercalcemia PT eval attempted but Nurse Bria said that patient was not feeling all too well with Hbg at 6.7 mg/dL as of 7:55 AM. Hold off on PT until tomorrow morning. Dr Fuentes and Nurse Fraser were apprised.
--- NOTE | 2025-09-14 17:05 | PGE_ITS ---
Objective Last Vital Signs Temp 37.1 C 09/14/25 16:40 Pulse 90 09/14/25 16:01 Resp 18 09/14/25 16:01 BP 116/82 09/14/25 16:00 Pulse Ox 99 09/14/25 16:52 Laboratory Results - last 24 hr 09/13/25 09/13/25 09/13/25 16:36 17:44 22:15 WBC RBC Hgb Hct MCV MCH MCHC RDW Plt Count MPV Immature Gran % Neutrophils % Lymphocytes % Monocytes % Eosinophils % Basophils % Nucleated RBC % Absolute Neutrophils Absolute Lymphocytes Absolute Monocytes Absolute Eosinophils Absolute Basophils Sodium 134 L Potassium 3.4 L Chloride 97 L Carbon Dioxide 32.5 H Anion Gap 4.5 BUN 22 H Creatinine 0.6 Est GFR (CKD-EPI 2020) 107.26 Glucose 105 Calcium 10.9 H Ionized Calcium 1.50 H Total Bilirubin AST ALT Alkaline Phosphatase Total Protein Albumin TSH 4.96 H Urine Color Yellow Urine Clarity Clear Urine pH 7.0 Ur Specific [place] 1.010 Urine Protein Negative Urine Ketones Negative Urine Blood Negative Urine Nitrite Negative Urine Bilirubin Negative Urine Urobilinogen 0.2 Ur Leukocyte Esterase Negative Urine Glucose Negative ABO/Rh Blood Type Recheck Antibody Screen Crossmatch 09/14/25 09/14/25 09/14/25 05:30 07:55 08:43 WBC 19.33 H RBC 1.98 L Hgb 6.8 L* 6.7 L* Hct 20.5 L* 19.9 L* MCV 104 H MCH 34.3 H MCHC 33.2 RDW 17.5 H Plt Count 177 MPV 9.5 Immature Gran % 2.2 Neutrophils % 88.9 Lymphocytes % 5.5 Monocytes % 2.7 Eosinophils % 0.3 Basophils % 0.4 Nucleated RBC % 0.0 Absolute Neutrophils 17.18 H Absolute Lymphocytes 1.06 L Absolute Monocytes 0.52 Absolute Eosinophils 0.06 Absolute Basophils 0.08 Sodium 134 L Potassium 3.2 L Chloride 99 Carbon Dioxide 32.1 H Anion Gap 2.9 L BUN 16 Creatinine 0.6 Est GFR (CKD-EPI 2020) 107.26 Glucose 80 Calcium 9.9 Ionized Calcium Total Bilirubin 0.2 AST 11 L ALT 16 Alkaline Phosphatase 103 Total Protein 5.6 L Albumin 2.2 L TSH Urine Color Urine Clarity Urine pH Ur Specific [place] Urine Protein Urine Ketones Urine Blood Urine Nitrite Urine Bilirubin Urine Urobilinogen Ur Leukocyte Esterase Urine Glucose ABO/Rh O Positive Blood Type Recheck O Positive Antibody Screen NEGATIVE Crossmatch See Detail
[2025-09-14 18:23] LABS: HCT 31.9 % (36.0-46.0); HGB 10.9 g/dL (11.2-15.7)
--- NOTE | 2025-09-14 19:05 | PGE_ITS ---
Date of Service Date of service: 09/14/25 Time of Service: 08:00 Assessment and Plan Assessment and plan (1) Anemia requiring transfusions: Status: Acute Assessment and plan: Morning hemoglobin 6.8, repeat 6.7 Transfusing PRBC 2u Cause unclear, patient says this happens and there is no apparent source of bleeding Monitor H&H (2) Hypercalcemia of malignancy: Status: Acute Assessment and plan: Corrected calcium 14.1 on arrival, slightly improved after zoledronic acid, calcitonin, NS bolus Per review of the guidelines, goal urine output 100-150 ml/hr Can repeat calcitonin as needed, no effect after 48 hours Zoledronic acid can be repeated in a week Admitted to ICU for frequent monitoring/labs and tracheostomy care TSH elevated, awaiting free T4 Awaiting PTH labs Sep 14: Ca 9.9, albumin corrected to 11. Repeat calcitonin dose. (3) Squamous cell carcinoma of nasopharynx: Status: Acute Assessment and plan: Care through [facility] Diagnosis was reportedly in June Continue PRN oxycodone (4) Tracheostomy in place: Status: Acute Assessment and plan: Not used for breathing Regular tracheostomy care (5) Gastrostomy tube in place: Assessment and plan: Regular PEG care Patient can tolerate puree Continue PPI (6) Hypothyroidism: Status: Chronic Assessment and plan: Continue levothyroxine Subjective Subjective Interval history since last seen: Mrs. Caputo is comfortable in bed. Hgb below 7, again under 7 on recheck, transfusing PRBC 2u. Patient reports that she has had blood transfusions many times. Exam Narrative Exam Narrative: General: This is a diminutive, chronically ill-appearing woman in no distress HEENT: Tracheostomy, impaired phonation, inability to control secretions CV: RRR. Portacath upper right chest. Resp: CTAB Abd: soft, NTND. PEG in place, site c/d/i MSK: voluntary motion x4 Neuro: awake, alert, no focal deficits Objective Last Vital Signs Temp 37.1 C 09/14/25 16:40 Pulse 90 09/14/25 16:01 Resp 18 09/14/25 16:01 BP 116/82 09/14/25 16:00 Pulse Ox 99 09/14/25 16:52 Laboratory Results - last 24 hr 09/13/25 09/13/25 09/14/25 16:36 22:15 05:30 WBC 19.33 H RBC 1.98 L Hgb 6.8 L* Hct 20.5 L* MCV 104 H MCH 34.3 H MCHC 33.2 RDW 17.5 H Plt Count 177 MPV 9.5 Immature Gran % 2.2 Neutrophils % 88.9 Lymphocytes % 5.5 Monocytes % 2.7 Eosinophils % 0.3 Basophils % 0.4 Nucleated RBC % 0.0 Absolute Neutrophils 17.18 H Absolute Lymphocytes 1.06 L Absolute Monocytes 0.52 Absolute Eosinophils 0.06 Absolute Basophils 0.08 Sodium 134 L 134 L Potassium 3.4 L 3.2 L Chloride 97 L 99 Carbon Dioxide 32.5 H 32.1 H Anion Gap 4.5 2.9 L BUN 22 H 16 Creatinine 0.6 0.6 Est GFR (CKD-EPI 2020) 107.26 107.26 Glucose 105 80 Calcium 10.9 H 9.9 Ionized Calcium 1.50 H Total Bilirubin 0.2 AST 11 L ALT 16 Alkaline Phosphatase 103 Total Protein 5.6 L Albumin 2.2 L ABO/Rh Blood Type Recheck O Positive Antibody Screen Crossmatch 09/14/25 09/14/25 09/14/25 07:55 08:43 18:15 WBC RBC Hgb 6.7 L* 10.9 L D Hct 19.9 L* 31.9 L MCV MCH MCHC RDW Plt Count MPV Immature Gran % Neutrophils % Lymphocytes % Monocytes % Eosinophils % Basophils % Nucleated RBC % Absolute Neutrophils Absolute Lymphocytes Absolute Monocytes Absolute Eosinophils Absolute Basophils Sodium Potassium Chloride Carbon Dioxide Anion Gap BUN Creatinine Est GFR (CKD-EPI 2020) Glucose Calcium Ionized Calcium Total Bilirubin AST ALT Alkaline Phosphatase Total Protein Albumin ABO/Rh O Positive Blood Type Recheck Antibody Screen NEGATIVE Crossmatch See Detail Time Spent with Patient Time Spent with Patient: 35-49 minutes Time was spent: preparing to see the patient(eg.review tests), obtaining and/or reviewing separately otained hiistory, ordering medications,tests, procedures, referring, communicating with other health certified social workers in health care, indepentently interpreting results, counseling the patient and care coordination
[2025-09-15] VITALS (16 sets, daily range): BP systolic 104–137; BP diastolic 63–78; PULSE 71–86; RESP 7–20; TEMP 36.7–37; O2SAT 97–100
[2025-09-15] MEDS: Acetaminophen 325 MG TAB 650 MG PO ×3 (00:27→11:50)
[2025-09-15] MEDS: POTASSIUM CHLORIDE/D5-0.9%NACL 1,000 ML 100 MEQ IV (03:49)
[2025-09-15] MEDS: oxyCODONE 5 MG/5 ML CUP PO (04:01)
[2025-09-15] MEDS: Levothyroxine 100 MCG TAB PO (05:20)
[2025-09-15] MEDS: Normal Saline Flush 10 ML SYR IVP ×2 (05:20→08:26)
[2025-09-15 06:06] LABS: Abs Immature Grans 0.79 10^3/uL (0.0-0.06); HCT 31.2 % (36.0-46.0); HGB 10.7 g/dL (11.2-15.7); Immature Grans % 3.9 %; MCH 32.1 pg (27.0-33.0); MCHC 34.3 % (32.0-36.0); MCV 94 fL (80-95); MPV 9.3 fL (8.0-11.0); Platelet Count 172 10^3/uL (130-400); RBC 3.33 10^6/uL (3.93-5.22); RDW 21.2 % (11.7-14.6); RDW-SD 69.0 fL; WBC 20.27 10^3/uL (4.4-10.8)
[2025-09-15 06:24] LABS: ALT 14 U/L (14-59); AST 12 U/L (15-37); Albumin 2.0 g/dL (3.4-5.0); Alkaline Phosphatase 99 U/L (46-116); Anion Gap 7.4 mmol/L (3-11); BUN 7 mg/dL (7-18); Bilirubin, Total 0.3 mg/dL (0.2-1.0); CO2 26.6 mmol/L (21.0-32.0); Calcium 8.8 mg/dL (8.5-10.1); Chloride 102 mmol/L (98-107); Glucose 96 mg/dL (74-106); Potassium 3.9 mmol/L (3.5-5.1); Sodium 136 mmol/L (136-145); Total Protein 5.4 g/dL (6.4-8.2)
[2025-09-15 06:43] LABS: Anisocytosis 2+
[2025-09-15] MEDS: Pantoprazole 40 MG VIAL IVP (08:26)
[2025-09-15] MEDS: Chlorhexidine Gluconate 0.12% Mouthwash 15 ML BTL MM (08:26)
--- NOTE | 2025-09-15 08:47 | W.PULMCON ---
General Date Of Service Date of service: 09/15/25 Time of Service: 08:20 Requesting physician: Narinder Fuentes Reason for Consult: Chronic respiratory failure, chronic tracheostomy Recommendations: Assessment: 1. Chronic respiratory failure - s/p tracheostomy placement [place]20[place] [facility] [place] Placed for laryngeal cancer. Currently has a cuffed trach (deflated) #6. Not dependant on mechanical ventilation 2. Hx laryngeal cancer 3. Hypercalcemia - Ca has corrected 4. Pulmonary nodules - multiple small nodules (< 0.4 cm) noted on CT chest 08/2025) Recommendations: - patient is scheduled for discharge today. Unfortunately we do not stock any cuffless trach's in the hospital. Will need to order and will plan to see on Saturday in clinic for exchange to a #6 cuffless trach. This may help with secretions. Discussed with Dr. Fuentes History of Present Illness Narrative: Patient is a 54 yo with a history of laryngeal cancer (s/p tracheostomy 05/2025) who was admitted on 09/13 for hypercalcemia. She was treated with zoledronic acid, calcitonin and IVF with improvement. Ca level this Am was 8.8. She underwent tracheostomy placement in 05/2025 at [facility] [place] Was changed to a cuffless trach prior to discharge. At some point, her tracheostomy fell out and had a cuffed trach placed. The inflation port was cut off at some point. States that her current trach has not been changed for several months. Upon arrival, there was significant mucous buildup around her trach. No bleeding noted. She has been wearing a PMV at home with out significant issue. Currently does not have a speaking valve in place. She has had chronic mucous production since her trach was placed. 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 Esophageal obstruction (Acute) Esophageal cancer (Acute) Medical History (Updated 09/14/25 @ 19:09 by Narinder Fuentes MD) SIADH (syndrome of inappropriate ADH production) Hyponatremia HTN (hypertension) Failure to thrive in adult Surgical History (Updated 09/13/25 @ 18:51 by Narinder Fuentes MD) Gastrostomy tube in place Social History Smoking/Tobacco Use Status: Former Tobacco Use Smoking risk assessment performed?: Yes Do you feel safe at home: Yes Do you feel safe in your relationship?: Yes Visit Medication and Allergies Active Medications Generic Name Dose Route Start Last Admin Trade Name Freq PRN Reason Stop Dose Admin Acetaminophen 650 mg 09/13/25 17:29 09/15/25 06:13 Acetaminophen 325 Mg Tab PO 650 mg Q4H PRN PRN Administration Bisacodyl 10 mg 09/14/25 10:02 09/14/25 10:28 Bisacodyl 10 Mg Supp CO 10 mg DAILY PRN PRN Administration Chlorhexidine Gluconate 15 ml 09/14/25 08:30 09/15/25 08:26 Chlorhexidine Gluconate 0.12% Mouthwash 15 Ml Btl MM 15 ml TID ARSLAN Administration Docusate Sodium 100 mg 09/14/25 10:02 Docusate Sodium 100 Mg Cap PO BID PRN PRN Constipation IV Miscellaneous Supplies 1 each 09/14/25 09:15 Iv Access IV DIRECTED ARSLAN Levothyroxine Sodium 100 mcg 09/14/25 06:00 09/15/25 05:20 Levothyroxine 100 Mcg Tab PO 100 mcg DAILY@0600 ARSLAN Administration Lorazepam 0.5 mg 09/14/25 13:42 Lorazepam 2 Mg/1 Ml Oral Concentrate PO Q6H PRN PRN Ondansetron HCl 4 mg 09/13/25 20:28 09/14/25 10:28 Ondansetron 4 Mg/2 Ml Vial IVP 4 mg Q6H PRN PRN Administration Oxycodone HCl 5 mg 09/13/25 17:38 09/15/25 04:01 Oxycodone 5 Mg/5 Ml Cup PO 5 mg Q4H PRN PRN Administration Pantoprazole Sodium 40 mg 09/14/25 08:30 09/15/25 08:26 Pantoprazole 40 Mg Vial IVP 40 mg DAILY ARSLAN Administration Polyethylene Glycol 17 gm 09/13/25 17:29 09/14/25 05:24 Polyethylene Glycol 3350 17 Gm Packet PO 17 gm DAILY PRN PRN Administration Constipation Prochlorperazine Edisylate 10 mg 09/14/25 11:03 09/14/25 11:13 Prochlorperazine 10 Mg/2 Ml Vial IVP 10 mg Q3H PRN PRN Administration Sennosides 1 tab 09/14/25 10:02 09/14/25 10:28 Senna Tab PO 1 tab BID PRN PRN Administration Sodium Chloride 0 ml 09/13/25 13:44 09/15/25 05:20 Normal Saline Flush 10 Ml Syr IVP 30 ml PRN PRN Administration Sodium Chloride 0 ml 09/13/25 20:00 09/15/25 08:26 Normal Saline Flush 10 Ml Syr IVP 10 ml BID ARSLAN Administration Sodium Chloride 0 ml 09/13/25 13:44 Normal Saline 10 Ml Vial IJ DIRECTED PRN Allergies No Known Allergies Allergy (Verified 05/07/25 15:59) Exam Narrative Exam Narrative: General: alert, no acute distress Head: normocephalic ENT: no stridor, trachea midline CV: [] rate, [] rhythm Respiratory: [] wheezing, [] crackles, [] rhonchi, [] prolonged expiration GI: abd soft, non-tender, non-distended Skin: [] rashes Extremities: [] edema, [] digital clubbing Neuro: [] Psych: normal affect Results Last Vital Signs Temp 36.7 C 09/15/25 07:05 Pulse 76 09/15/25 02:01 Resp 16 09/15/25 02:01 BP 105/63 09/15/25 02:01 Pulse Ox 98 09/15/25 08:22 Labs 09/15/25 05:50 09/15/25 05:50 Labs: Laboratory Results - last 24 hr 09/13/25 09/14/25 09/14/25 16:36 05:30 08:43 WBC RBC Hgb Hct MCV MCH MCHC RDW Plt Count MPV Immature Gran % Neutrophils % Lymphocytes % Monocytes % Eosinophils % Basophils % Nucleated RBC % Absolute Neutrophils Absolute Lymphocytes Absolute Monocytes Absolute Eosinophils Absolute Basophils RBC Morphology Anisocytosis Sodium Potassium Chloride Carbon Dioxide Anion Gap BUN Creatinine Est GFR (CKD-EPI 2020) Glucose Calcium Ionized Calcium 1.50 H Total Bilirubin AST ALT Alkaline Phosphatase Total Protein Albumin PTH Intact 10 L ABO/Rh O Positive Blood Type Recheck O Positive Antibody Screen NEGATIVE Crossmatch See Detail 09/14/25 09/15/25 18:15 05:50 WBC 20.27 H RBC 3.33 L Hgb 10.9 L D 10.7 L Hct 31.9 L 31.2 L MCV 94 D MCH 32.1 MCHC 34.3 RDW 21.2 H Plt Count 172 MPV 9.3 Immature Gran % 3.9 Neutrophils % 89.6 Lymphocytes % 4.0 Monocytes % 2.1 Eosinophils % 0.1 Basophils % 0.3 Nucleated RBC % 0.0 Absolute Neutrophils 18.16 H Absolute Lymphocytes 0.81 L Absolute Monocytes 0.43 Absolute Eosinophils 0.02 Absolute Basophils 0.06 RBC Morphology See Below Anisocytosis 2+ Sodium 136 Potassium 3.9 Chloride 102 Carbon Dioxide 26.6 Anion Gap 7.4 BUN 7 Creatinine 0.5 L Est GFR (CKD-EPI 2020) 112.08 Glucose 96 Calcium 8.8 Ionized Calcium Total Bilirubin 0.3 AST 12 L ALT 14 Alkaline Phosphatase 99 Total Protein 5.4 L Albumin 2.0 L PTH Intact ABO/Rh Blood Type Recheck Antibody Screen Crossmatch Imaging CT scan - chest: report reviewed and image reviewed
--- NOTE | 2025-09-15 08:50 | PDOC.CMPRO ---
Date of service: 09/15/25 Time of Service: 08:51 Care Management Progress Note Discharge Potential Discharge Needs: PCP F/U Appt and Other (oncology) Anticipated Barriers to Discharge: Medical Status Social Determinants of Health Screening Social Determinants of health last assessed in clinic: 09/14/25 Will the Patient Participate in the Screening?: Yes Do you worry about having a steady place to live?: no Problems where you live: no known problems In the past 12 months, have you had to go without electric, gas, oil or water in your home?: no Has lack of transportation kept you from medical appointments or from doing things needed for daily living?: no Has anyone in your life made you feel unsafe or unsupported?: no How hard is it for you to pay for the very basics like food, housing, medical care, and heating? Would you say it is:: Not hard at all Do you want help finding or keeping work or a job?: I do not need or want help If for any reason you need help with day-to-day activities such as bathing, preparing meals, shopping, managing finances, etc., do you get the help you need?: I don’t need any help How often do you feel lonely or isolated from those around you?: Never Do you speak a language other than [place]une[place] at home?: No Does the patient want assistance with any of the above?: No
[2025-09-15] MEDS: Ondansetron 4 MG/2 ML VIAL IVP (09:10)
--- NOTE | 2025-09-15 09:10 | W.PM.DS.N ---
Date of service: 09/15/25 Time of Service: 08:00 DS: Diagnosis Discharge Diagnosis (1) Anemia requiring transfusions: Status: Acute Asessment and Plan: Sep 14 morning hemoglobin 6.8, repeat 6.7 Transfused PRBC 2u Cause unclear, patient says this happens and there is no apparent source of bleeding Hemoglobin in the 10's since transfusion, suggestive of possible hemolysis in blood draw No further intervention at this time, oncology monitoring (2) Hypercalcemia of malignancy: Status: Acute Asessment and Plan: Corrected calcium 14.1 on arrival, slightly improved after zoledronic acid, calcitonin, NS bolus Per review of the guidelines, goal urine output 100-150 ml/hr Can repeat calcitonin as needed, no effect after 48 hours Zoledronic acid can be repeated in a week Admitted to ICU for frequent monitoring/labs and tracheostomy care TSH elevated, awaiting free T4 Awaiting PTH labs Sep 14: Ca 9.9, albumin corrected to 11. Repeat calcitonin dose. Sep 15: Ca 8.8, albumin corrected to 10.4. No further intervention here; oncology to follow. (3) Squamous cell carcinoma of nasopharynx: Status: Acute Asessment and Plan: Care through [facility] Diagnosis was reportedly in June Continue PRN oxycodone (4) Tracheostomy in place: Status: Acute Asessment and Plan: Not dependent on mechanical ventilation, comfortable on room air Appreciate pulmonology consult Outpatient maintenance planned in clinic here in [facility], will get cuffless trach change which may help with secretions (5) Gastrostomy tube in place: Asessment and Plan: Regular PEG care Patient can tolerate puree Continue PPI (6) Hypothyroidism: Status: Chronic Asessment and Plan: Continue levothyroxine Discharge Plan Disposition Patient Disposition: Home W/Home Health Services Condition: Fair Discharge Details Reason For Visit: Hypercalcemia Admit Date/Time: 09/13/25 17:29 Admit Provider: Narinder Fuentes Attending Provider: Narinder Fuentes Primary Care Provider: Unknown,Unknown Recommendations for Follow Up Recommended tests to be ordered by follow up provider: Cindy Caputo is a 54 year old woman presenting September 13, sent in from oncology clinic where she was unable to have chemotherapy due to abnormal labs. Patient has squamous cell carcinoma of the oropharynx and receives care through [facility]. She has a trach collar, which she does not depend on for breathing but cannot be removed. She has had difficulty flushing her PEG since it was replaced Sep 08. In the ED she was found to have severely elevated serum calcium which was treated with isotonic fluids, zoledronic acid and calcitonin with good effect. After admission she was found to have anemia with hemoglobin under 7, redrawn and reconfirmed, and was transfused 2 units of blood, with resulting hemoglobin persisting above 10. She has been seen by pulmonology and will be followed in clinic for tracheostomy care. She has had a bowel movement; she had profuse loose stool after being given methylnatrexone and a suppository. At this time she is safe to return home and resume home health services. Home Meds and New Rx's Prescriptions: Continued chlorhexidine gluconate [Peridex] 0.12 % mouthwash 15 ml mucous membrane TID omeprazole 20 mg capsule,delayed release(DR/EC) 20 mg PO DAILY Patient Comments: TAKE ONE CAPSULE BY MOUTH EVERY DAY oxycodone 5 mg/5 mL solution 5 mg PO Q4H PRN Patient Comments: TAKE 5MLS BY MOUTH EVERY 4 HOURS NEEDED FOR PAIN levothyroxine 100 mcg tablet 100 mcg PO DAILY Patient Comments: TAKE ONE TABLET EVERY DAY IN THE MORNING PER GTUBE Discharge Instructions Instructions: Hypercalcemia (DC) Referrals: Alf Uriarte MD [ [facility] STAFF PHYSICIAN, Pulmonology] Activity:: Activity as Tolerated Equipment/Supplies:: No Equipment Needed Diet:: As Tolerated DS: Summary Time Spent with Patient providing and/or coordinating discharge services: Greater than 30 minutes Status at Discharge Functional status at discharge: uses cane/walker Overall status at discharge: patient is progressing back to baseline Mental Status: mental status grossly normal Speech and Movement: speech and movement normal Mood: congruent mood Affect: normal affect Exam Narrative Exam Narrative: General: This is a diminutive, chronically ill-appearing woman in no distress HEENT: Tracheostomy, impaired phonation, inability to control secretions CV: RRR. Portacath upper right chest. Resp: CTAB Abd: soft, NTND. PEG in place, site c/d/i MSK: voluntary motion x4 Neuro: awake, alert, no focal deficits Psych Mental Status: mental status grossly normal Speech and Movement: speech and movement normal Mood: congruent mood Affect: normal affect DS: Data Vitals/I&O Vitals and I&O: Vital Signs Temperature 36.7 C 09/15/25 07:05 Temperature Source Temporal Artery Scan 09/15/25 07:05 Pulse 76 09/15/25 02:01 Pulse 77 09/15/25 02:01 Respiratory Rate 16 09/15/25 02:01 Respiratory Effort Normal 09/13/25 20:30 Respiratory Depth Normal 09/13/25 20:30 Respiratory Pattern Normal 09/13/25 20:30 Blood Pressure 105/63 09/15/25 02:01 Blood Pressure Mean 75 09/15/25 02:01 Blood Pressure Position Supine 09/13/25 20:30 Pulse Oximetry 98 09/15/25 08:22 Oxygen Delivery Method Trach Collar 09/15/25 08:22 Oxygen Flow Rate 6 09/15/25 08:22 Fraction of Inspired Oxygen (FIO2) 21 09/15/25 08:22 Pain Level 7 09/13/25 20:30 Intake & Output 09/14/25 09/14/25 09/15/25 11:59 23:59 11:59 Intake Total 1868.666 / 3561.999 1693.333 / 3561.999 1433.333 / 1433.333 Output Total 1050 / 2125 1075 / 2125 925 / 925 Balance 818.666 / 1436.999 618.333 / 1436.999 508.333 / 508.333 Weight 45.1 kg 45.1 kg Intake: IV 1196.666 / 2159.999 963.333 / 2159.999 1433.333 / 1433.333 Oral 672 / 672 Blood Product 730 / 730 Rbc Leuko Reduced Unit 350 / 350 [id number] Rbc Leuko Reduced Unit 380 / 380 [id number] Output: Urine 1050 / 2125 1075 / 2125 925 / 925 Other: Urine Color Yellow Yellow Yellow Urine Appearance Clear Cloudy Clear Urine Odor None Normal Normal Comment pt able to assist with placing bedpan for comfort Stool Size Moderate Stool Characteristics Soft Formed Liquid Brown Data Completed and Pending Pending Labs at Discharge: 09/13/25 09/13/25 09/13/25 14:10 15:50 16:36 WBC 24.32 H RBC 2.30 L Hgb 8.0 L Hct 23.7 L MCV 103 H MCH 34.8 H MCHC 33.8 RDW 17.6 H Plt Count 172 MPV 9.6 Immature Gran % 1.7 Neutrophils % 92.1 Lymphocytes % 2.5 Monocytes % 3.3 Eosinophils % 0.0 Basophils % 0.4 Nucleated RBC % 0.0 Absolute Neutrophils 22.40 H Absolute Lymphocytes 0.61 L Absolute Monocytes 0.80 Absolute Eosinophils 0.00 Absolute Basophils 0.10 RBC Morphology See Below Hypochromasia 1+ Anisocytosis 2+ Sodium 133 L Potassium 3.7 Chloride 93 L Carbon Dioxide 34.9 H Anion Gap 5.1 BUN 31 H Creatinine 0.9 Est GFR (CKD-EPI 2020) 76.44 Glucose 130 H Calcium 12.8 H* Ionized Calcium 1.50 H Magnesium 1.7 L Total Bilirubin 0.2 GGT 67 H AST 13 L ALT 22 Alkaline Phosphatase 138 H Troponin I 10 11 Total Protein 6.4 Albumin 2.5 L Vit D 1,25-Dihydroxy Pending TSH 4.96 H PTH Intact 10 L PTH Related Peptide Pending Urine Color Urine Clarity Urine pH Ur Specific [place] Urine Protein Urine Ketones Urine Blood Urine Nitrite Urine Bilirubin Urine Urobilinogen Ur Leukocyte Esterase Urine Glucose ABO/Rh Blood Type Recheck Antibody Screen Crossmatch 09/13/25 09/13/25 09/13/25 17:04 17:44 22:15 WBC RBC Hgb Hct MCV MCH MCHC RDW Plt Count MPV Immature Gran % Neutrophils % Lymphocytes % Monocytes % Eosinophils % Basophils % Nucleated RBC % Absolute Neutrophils Absolute Lymphocytes Absolute Monocytes Absolute Eosinophils Absolute Basophils RBC Morphology Hypochromasia Anisocytosis Sodium 134 L Potassium 3.4 L Chloride 97 L Carbon Dioxide 32.5 H Anion Gap 4.5 BUN 22 H Creatinine 0.6 Est GFR (CKD-EPI 2020) 107.26 Glucose 105 Calcium 10.9 H Ionized Calcium Magnesium Total Bilirubin GGT AST ALT Alkaline Phosphatase Troponin I Cancelled Total Protein Albumin Vit D 1,25-Dihydroxy TSH PTH Intact PTH Related Peptide Urine Color Yellow Urine Clarity Clear Urine pH 7.0 Ur Specific [place] 1.010 Urine Protein Negative Urine Ketones Negative Urine Blood Negative Urine Nitrite Negative Urine Bilirubin Negative Urine Urobilinogen 0.2 Ur Leukocyte Esterase Negative Urine Glucose Negative ABO/Rh Blood Type Recheck Antibody Screen Crossmatch 09/14/25 09/14/25 09/14/25 05:30 07:55 08:43 WBC 19.33 H RBC 1.98 L Hgb 6.8 L* 6.7 L* Hct 20.5 L* 19.9 L* MCV 104 H MCH 34.3 H MCHC 33.2 RDW 17.5 H Plt Count 177 MPV 9.5 Immature Gran % 2.2 Neutrophils % 88.9 Lymphocytes % 5.5 Monocytes % 2.7 Eosinophils % 0.3 Basophils % 0.4 Nucleated RBC % 0.0 Absolute Neutrophils 17.18 H Absolute Lymphocytes 1.06 L Absolute Monocytes 0.52 Absolute Eosinophils 0.06 Absolute Basophils 0.08 RBC Morphology Hypochromasia Anisocytosis Sodium 134 L Potassium 3.2 L Chloride 99 Carbon Dioxide 32.1 H Anion Gap 2.9 L BUN 16 Creatinine 0.6 Est GFR (CKD-EPI 2020) 107.26 Glucose 80 Calcium 9.9 Ionized Calcium Magnesium Total Bilirubin 0.2 GGT AST 11 L ALT 16 Alkaline Phosphatase 103 Troponin I Total Protein 5.6 L Albumin 2.2 L Vit D 1,25-Dihydroxy TSH PTH Intact PTH Related Peptide Urine Color Urine Clarity Urine pH Ur Specific [place] Urine Protein Urine Ketones Urine Blood Urine Nitrite Urine Bilirubin Urine Urobilinogen Ur Leukocyte Esterase Urine Glucose ABO/Rh O Positive Blood Type Recheck O Positive Antibody Screen NEGATIVE Crossmatch See Detail 09/14/25 09/15/25 18:15 05:50 WBC 20.27 H RBC 3.33 L Hgb 10.9 L D 10.7 L Hct 31.9 L 31.2 L MCV 94 D MCH 32.1 MCHC 34.3 RDW 21.2 H Plt Count 172 MPV 9.3 Immature Gran % 3.9 Neutrophils % 89.6 Lymphocytes % 4.0 Monocytes % 2.1 Eosinophils % 0.1 Basophils % 0.3 Nucleated RBC % 0.0 Absolute Neutrophils 18.16 H Absolute Lymphocytes 0.81 L Absolute Monocytes 0.43 Absolute Eosinophils 0.02 Absolute Basophils 0.06 RBC Morphology See Below Hypochromasia Anisocytosis 2+ Sodium 136 Potassium 3.9 Chloride 102 Carbon Dioxide 26.6 Anion Gap 7.4 BUN 7 Creatinine 0.5 L Est GFR (CKD-EPI 2020) 112.08 Glucose 96 Calcium 8.8 Ionized Calcium Magnesium Total Bilirubin 0.3 GGT AST 12 L ALT 14 Alkaline Phosphatase 99 Troponin I Total Protein 5.4 L Albumin 2.0 L Vit D 1,25-Dihydroxy TSH PTH Intact PTH Related Peptide Urine Color Urine Clarity Urine pH Ur Specific [place] Urine Protein Urine Ketones Urine Blood Urine Nitrite Urine Bilirubin Urine Urobilinogen Ur Leukocyte Esterase Urine Glucose ABO/Rh Blood Type Recheck Antibody Screen Crossmatch PFSH All Active Problems (Updated 09/14/25 @ 19:09 by Narinder Fuentes MD) Anemia requiring transfusions (Acute) Hypothyroidism (Chronic) PEG (percutaneous endoscopic gastrostomy) status (Acute) Tracheostomy in place (Acute) Hypercalcemia of malignancy (Acute) Laryngeal mass (Acute) 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 Esophageal obstruction (Acute) Esophageal cancer (Acute) Medical History (Updated 09/14/25 @ 19:09 by Narinder Fuentes MD) SIADH (syndrome of inappropriate ADH production) Hyponatremia HTN (hypertension) Failure to thrive in adult Surgical History (Updated 09/13/25 @ 18:51 by Narinder Fuentes MD) Gastrostomy tube in place Social History Smoking/Tobacco Use Status: Former Tobacco Use Smoking risk assessment performed?: Yes Do you feel safe at home: Yes Do you feel safe in your relationship?: Yes Time Spent with Patient Time Spent with Patient: 45-69 minutes Time was spent: preparing to see the patient(eg.review tests), obtaining and/or reviewing separately otained hiistory, ordering medications,tests, procedures, referring, communicating with other health point of care specialist, indepentently interpreting results, counseling the patient and care coordination
--- NOTE | 2025-09-15 09:29 | PDOC.HHF2F ---
Date of service: 09/15/25 Time of Service: 09:29 Home Health Referral Home Health Orders Medical diagnosis necessitation home health referral: oropharyngeal cancer, tracheostomy site, PEG tube, debility Registered Nurse: Check all that apply Assess for exacerbation of medical condition, instruct patient/caregivers on signs and symptoms to report for early detection: Ordered Assess wound for signs and symptoms of infection, instruct on wound care and/or provide skilled wound care consisting of: PEG site care, tracheostomy care Physical Therapist: Check all that apply Increase strength & endurance for safe mobility at home: Ordered To design/establish home maintenance program: Ordered Home safety evaluation and teaching/gait training including stair management (if applicable): Ordered Encounter Date and Reason: I certify that a FTF encounter for this patient was performed on September 15, 2025 and that such encounter was related to the primary reason the patient requires home health services. The encounter was conducted in the following manner: By me as the certifying physician, PATTERN CHANGER AND REPAIRER, PA or By an inpatient physician, PATTERN CHANGER AND REPAIRER or PA during an inpatient stay who communicated findings to me, Certification And Authentication I certify that I composed the above information based on my clinical judgment relating to this patient's medical condition and, if applicable, clinical findings communicated to me by the NPP or inpatient physician who performed the FTF encounter. Name of Provider that will be monitoring home health services: Davida Clement
--- NOTE | 2025-09-15 10:24 | W.NUTRFU ---
Date of service: 09/14/25 Time of Service: 13:00 Nutrition Note NOTE: Visited with patient yesterday - currenlty being discharged. offered puree consistencies and fluids from the kitchen. Pt with minimal intake but did not want to initiate enteral feedings d/t current nausea/dizziness she had been experiencing. Pt working with oncology dietitian to address intake and weight loss during tx. Will remain available for outpatient MNT. unable to perform NFPE yesterday. Will monitor Time Spent in Nutritional Counseling and Treatment: 5 min
--- NOTE | 2025-09-15 12:17 | IN_ITS ---
PT Notes Visit Reasons: Hypercalcemia Physical Therapy Inpatient Initial Evaluation Date: 09/15/2025 Referring Doctor: Dr Fuentes PT Orders: PT CONSULT: PT evaluation and treat Precautions: Trach, PEG tube Patient Profile/Admitting Diagnosis: Cindy is a 54-year-old female presented September 13, sent in from oncology clinic where she was unable to have chemotherapy due to abnormal labs. Patient has squamous cell carcinoma of the oropharynx and receives care through [facility] [place]. She has a trach collar, which she does not depend on for breathing but cannot be removed. She has had difficulty flushing her PEG since it was replaced Sep 08. In the ED she was found to have severely elevated serum calcium which was treated with isotonic fluids, zoledronic acid and calcitonin with good effect. After admission she was found to have anemia with hemoglobin under 7, redrawn and reconfirmed, and was transfused 2 units of blood, with resulting hemoglobin persisting above 10. PT Consult placed in anticipation of discharge. PMHX: Hypothyroidism (Chronic) PEG (percutaneous endoscopic gastrostomy) status (Acute) Tracheostomy in place (Acute) Hypercalcemia of malignancy (Acute) Laryngeal mass (Acute) 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Esophageal obstruction (Acute) Esophageal cancer (Acute) Medical History (Updated 09/13/25 @ 18:51 by Narinder Fuentes MD) SIADH (syndrome of inappropriate ADH production) Hyponatremia HTN (hypertension) Failure to thrive in adult Surgical History (Updated 09/13/25 @ 18:51 by Narinder Fuentes MD) Gastrostomy tube in place Social History/Home Situation:lives alone in an apartment in [place]. She has 3 children but only 1 lives locally. 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 She receives RN and PT through [facility]. She is mostly independent with ADLs but does require some assistance which her [id number] provides. Equipment Owned/DME: None Subjective: Patient reports she would like to take a walk even though she is g oing home today to make sure she feels comfortable Objective: General Observation: Female presented in high-Hughes position with humidification to tracheostomy and telemetry in place Mental Status: Alert and oriented x 4, cooperative, able to follow instructions, agreeable to participate in evaluation Pain: Right Glute soreafter ambulation ROM: [] Right Upper Extremity: WNL Left Upper Extremity: WNL Right Lower Extremity: WNL Left Lower Extremity: WNL Strength: [] Right Upper Extremity: 4/5 Left Upper Extremity: 4/5 Right Lower Extremity: 4/5 Left Lower Extremity: 4/5 Sensation: Intact Bed Mobility/Transfers: [] Supine to sit independent Sit to stand independent Stand to sit independent Bed to chair independent Gait: Ambulated 300 feet without assistive device independently level surfaces including turns. Stairs: 3 4 steps and 2 6 steps with rail independent Balance: [] Static Sitting: Normal Dynamic Sitting: Normal Static Standing: Normal Dynamic Standing: Normal Special Tests: [] Mobility Limitations Standardized Measure [] [facility] 6 clicks Basic Mobility Inpatient Short Form: [] Raw Score: 24 CMS Score: 0% deficit Informed Consent/Education: Patient instructed in purpose of PT consult. Assessment: Patient is a 54-year-old female presenting with generalized weakness status post hospitalization for anemia. Patient reports pain in right glute after ambulation. Patient demonstrates ability to ambulate without assistive device 300 feet independently. Patient independent on 5 stairs with 1 rail reciprocal pattern. Patient requesting home health PT to work on further strengthening and building back her activity tolerance to improve her ability to perform all of her own ADLs. Patient is assessed as a low complexity based on the following: History: 54-year-old female with impairment level findings, functional limitations, and past medical history as indicated above Examination: Demonstrable impairment in strength, balance, and mobility level with underlying impairments and functional limitations as documented above Presentation: Stable Decision Making: Low Goals: N/A. PT evaluation Plan of Care/Treatment Plan: N/A. PT evaluation DISCHARGE RECOMMENDATIONS: Home with PT for strengthening TREATMENT CODE/TIME: [id number] Thank you for the opportunity to participate in the care of this patient. Dominga Humphrey PT [facility]
--- NOTE | 2025-09-15 12:17 | PDOC.HHF2F ---
Date of service: 09/15/25 Time of Service: 09:29 Home Health Referral Registered Nurse: Check all that apply Assess for exacerbation of medical condition, instruct patient/caregivers on signs and symptoms to report for early detection: Ordered Speech Therapist: Check all that apply For swallow evaluation/therapy due to dysphagia: Ordered Encounter Date and Reason: I certify that a FTF encounter for this patient was performed on September 15, 2025 and that such encounter was related to the primary reason the patient requires home health services. The encounter was conducted in the following manner: By me as the certifying physician, BALANCE WEIGHER, PA or By an inpatient physician, BALANCE WEIGHER or PA during an inpatient stay who communicated findings to me, Certification And Authentication I certify that I composed the above information based on my clinical judgment relating to this patient's medical condition and, if applicable, clinical findings communicated to me by the NPP or inpatient physician who performed the FTF encounter. Name of Provider that will be monitoring home health services: Davida Clement
--- NOTE | 2025-09-15 12:25 | CMDISCH_ITS ---
Date of service: 09/15/25 Time of Service: 12:25 LACE Index Scoring Tool Questions: Length of Stay (in days): 2 Was the patient admitted via the E.D.?: Yes Comorbidities: Metastatic Solid Tumor E.D. Visits: 1 Answers: Total Score: 11 Risk of Readmission: High Risk Care Management Discharge Plan Reason for Hospitalization: hypercalcemia Discharge Plan: Cindy will be discharged home with a resumption of home health services for nursing and speech through [facility]. She will follow up with her community providers and plan of care and transport with her [id number]. Patient/Family Education Needs: Review discharge instructions, limitations, follow up plan and discuss Ask Me Three Services Needed at Discharge: Home Health Care Services
[2025-09-20 10:06] LABS: 1,25-Dihydroxyvitamin D <8.0 pg/mL (18-78)
== END 2025-09-15 13:00 | disposition home health service (06) | DRG 641 ==
LOC: ER 15:34 → ICU 18:50
PROVIDERS: Admitting Provider Family Medicine; Emergency Provider Emergency Medicine; Responsible Provider Family Medicine; Visit Provider Family Medicine
DX: E83.52 Hypercalcemia (principal); E22.2 Syndrome of inappropriate secretion of antidiuretic hormone; Z68.1 Body mass index [BMI] 19.9 or less, adult; C15.9 Malignant neoplasm of esophagus, unspecified; D64.9 Anemia, unspecified; C10.8 Malignant neoplasm of overlapping sites of oropharynx; Z93.0 Tracheostomy status; E03.9 Hypothyroidism, unspecified; I10 Essential (primary) hypertension; R62.7 Adult failure to thrive; Z93.1 Gastrostomy status; Z87.891 Personal history of nicotine dependence; R91.8 Other nonspecific abnormal finding of lung field; I95.9 Hypotension, unspecified; D72.829 Elevated white blood cell count, unspecified; K22.2 Esophageal obstruction; Z79.899 Other long term (current) drug therapy; Z66 Do not resuscitate; Z73.89 Other problems related to life management difficulty
CPT/HCPCS: 00123; 36415; 36591; 74177; 80048; 80053; 86850; 86900; 86901; 86920; 93005; 96361; 96365; 96366; 96367; 96372; 96375; 97161; 99285; 71260; 81003; 82330; 82397; 82652; 82977; 83735; 83970; 84443; 84484; 85014; 85018; 85025; 93010; 94640; 94760; 99222; 99232; 99239; J0131; J0630; J0780; J2212; J2270; J2405; J2470; J3475; J3489; J3490; P9016

== ENCOUNTER 2025-09-17 00:47 | Outpatient (RCR) | payer MEDICAID, SELFPAY ==
[2025-08-23] MEDS: Normal Saline Flush 10 ML SYR IVP (10:47)
[2025-08-23 10:53] LABS: Abs Immature Grans 0.41 10^3/uL (0.0-0.06); HCT 30.9 % (36.0-46.0); HGB 9.9 g/dL (11.2-15.7); Immature Grans % 1.8 %; MCH 32.0 pg (27.0-33.0); MCHC 32.0 % (32.0-36.0); MCV 100 fL (80-95); MPV 8.9 fL (8.0-11.0); Platelet Count 529 10^3/uL (130-400); RBC 3.09 10^6/uL (3.93-5.22); RDW 20.3 % (11.7-14.6); RDW-SD 74.3 fL; WBC 22.53 10^3/uL (4.4-10.8)
[2025-08-23 11:19] LABS: ALT 24 U/L (14-59); AST 12 U/L (15-37); Albumin 3.1 g/dL (3.4-5.0); Alkaline Phosphatase 114 U/L (46-116); Anion Gap 7.1 mmol/L (3-11); BUN 14 mg/dL (7-18); Bilirubin, Total 0.4 mg/dL (0.2-1.0); CO2 27.9 mmol/L (21.0-32.0); Calcium 10.0 mg/dL (8.5-10.1); Chloride 99 mmol/L (98-107); Glucose 110 mg/dL (74-106); Potassium 4.5 mmol/L (3.5-5.1); Sodium 134 mmol/L (136-145); TSH 2.26 uIU/mL (0.36-3.74); Total Protein 6.9 g/dL (6.4-8.2)
[2025-08-23 11:24] LABS: Anisocytosis 2+
[2025-08-23 11:25] LABS: Hypochromasia 1+
[2025-08-30 13:20] LABS: Abs Immature Grans 0.22 10^3/uL (0.0-0.06); HCT 29.6 % (36.0-46.0); HGB 9.5 g/dL (11.2-15.7); Immature Grans % 1.4 %; MCH 32.3 pg (27.0-33.0); MCHC 32.1 % (32.0-36.0); MCV 101 fL (80-95); MPV 8.8 fL (8.0-11.0); Platelet Count 523 10^3/uL (130-400); RBC 2.94 10^6/uL (3.93-5.22); RDW 18.6 % (11.7-14.6); RDW-SD 69.1 fL; WBC 15.32 10^3/uL (4.4-10.8)
[2025-08-30] MEDS: Normal Saline Flush 10 ML SYR IVP (13:27)
[2025-08-30 13:50] LABS: ALT 30 U/L (14-59); AST 19 U/L (15-37); Albumin 2.9 g/dL (3.4-5.0); Alkaline Phosphatase 119 U/L (46-116); Anion Gap 9.3 mmol/L (3-11); BUN 16 mg/dL (7-18); Bilirubin, Total 0.3 mg/dL (0.2-1.0); CO2 26.7 mmol/L (21.0-32.0); Calcium 9.2 mg/dL (8.5-10.1); Chloride 99 mmol/L (98-107); Glucose 131 mg/dL (74-106); Potassium 4.7 mmol/L (3.5-5.1); Sodium 135 mmol/L (136-145); TSH 4.35 uIU/mL (0.36-3.74); Total Protein 6.8 g/dL (6.4-8.2)
[2025-09-13] MEDS: Normal Saline Flush 10 ML SYR IVP (12:10)
[2025-09-13 12:22] LABS: Abs Immature Grans 0.39 10^3/uL (0.0-0.06); HCT 25.8 % (36.0-46.0); HGB 8.6 g/dL (11.2-15.7); MCH 34.4 pg (27.0-33.0); MCHC 33.3 % (32.0-36.0); MCV 103 fL (80-95); MPV 9.7 fL (8.0-11.0); Platelet Count 191 10^3/uL (130-400); RBC 2.50 10^6/uL (3.93-5.22); RDW 17.3 % (11.7-14.6); RDW-SD 64.6 fL
[2025-09-13 12:40] LABS: Anisocytosis 1+
[2025-09-13 12:41] LABS: ALT 23 U/L (14-59); AST 16 U/L (15-37); Albumin 2.6 g/dL (3.4-5.0); Alkaline Phosphatase 137 U/L (46-116); Anion Gap 5.4 mmol/L (3-11); BUN 28 mg/dL (7-18); Bilirubin, Total 0.2 mg/dL (0.2-1.0); CO2 35.6 mmol/L (21.0-32.0); Chloride 93 mmol/L (98-107); Glucose 123 mg/dL (74-106); Potassium 3.6 mmol/L (3.5-5.1); Sodium 134 mmol/L (136-145); TSH 11.18 uIU/mL (0.36-3.74); Total Protein 6.8 g/dL (6.4-8.2)
[2025-09-13 12:43] LABS: WBC 26.19 10^3/uL (4.4-10.8)
[2025-09-13 12:47] LABS: Calcium 13.0 mg/dL (8.5-10.1)
== END 2025-09-17 23:59 | disposition home or self-care (01) ==
LOC: INF 00:47
PROVIDERS: Visit Provider Internal Medicine Hematology
DX: Z45.2 Encounter for adjustment and management of vascular access device (principal); C14.0 Malignant neoplasm of pharynx, unspecified
CPT/HCPCS: 36591; 80053; 84439; 84443; 85025

== ENCOUNTER 2025-10-04 02:17 | Outpatient (RCR) | payer MEDICAID, SELFPAY ==
[2025-09-20 08:48] LABS: Abs Immature Grans 1.44 10^3/uL (0.0-0.06); HCT 35.5 % (36.0-46.0); HGB 11.8 g/dL (11.2-15.7); MCH 31.1 pg (27.0-33.0); MCHC 33.2 % (32.0-36.0); MCV 94 fL (80-95); MPV 9.1 fL (8.0-11.0); Platelet Count 458 10^3/uL (130-400); RBC 3.79 10^6/uL (3.93-5.22); RDW 19.6 % (11.7-14.6); RDW-SD 66.2 fL
[2025-09-20] MEDS: Normal Saline Flush 10 ML SYR IVP (09:05)
[2025-09-20 09:28] LABS: ALT 28 U/L (14-59); AST 17 U/L (15-37); Albumin 2.5 g/dL (3.4-5.0); Alkaline Phosphatase 173 U/L (46-116); Anion Gap 10.2 mmol/L (3-11); BUN 9 mg/dL (7-18); Bilirubin, Total 0.3 mg/dL (0.2-1.0); CO2 26.8 mmol/L (21.0-32.0); Calcium 8.3 mg/dL (8.5-10.1); Chloride 99 mmol/L (98-107); Estimated GFR 107.26 (mL/min/1.73m2); Glucose 144 mg/dL (74-106); Potassium 3.6 mmol/L (3.5-5.1); Sodium 136 mmol/L (136-145); TSH 9.61 uIU/mL (0.36-3.74); Total Protein 6.7 g/dL (6.4-8.2)
[2025-09-20 09:33] LABS: Immature Grans % 0.0 %; RBC Morphology Normal
[2025-09-20 09:37] LABS: WBC 31.63 10^3/uL (4.4-10.8)
== END 2025-10-17 23:59 | disposition home or self-care (01) ==
LOC: INF 02:17
PROVIDERS: Visit Provider Internal Medicine Hematology
DX: Z45.2 Encounter for adjustment and management of vascular access device (principal); C14.0 Malignant neoplasm of pharynx, unspecified
CPT/HCPCS: 36591; 80053; 84439; 84443; 85025